=== PATIENT | female | born 1940 | race Caucasian/White ===

== ENCOUNTER 2017-05-08 12:02 | Inpatient (IN) | payer MEDICARE, OTHER ==
[~2017-05-08] VITALS: Ht 167.6 cm; Wt 84.0 kg
[2017-05-08 12:27] VITALS: BP 195/109; PULSE 74; RESP 20; O2SAT 100
[2017-05-08 13:10] VITALS: BP 191/86
[2017-05-08] MEDS ORDERED: ROSU5 PO (13:43)
[2017-05-08] MEDS ORDERED: ERGO1CAP30 PO (13:43)
[2017-05-08] MEDS ORDERED: PAXI20TA10 PO (13:43)
[2017-05-08] MEDS ORDERED: OXYB5TAB10 PO (13:43)
[2017-05-08] MEDS ORDERED: TRAM50TA PO (13:43)
[2017-05-08] MEDS ORDERED: LEVO50TA4 PO (13:43)
[2017-05-08] MEDS ORDERED: TRAZ100T6 PO (13:43)
[2017-05-08] MEDS ORDERED: LANTUS2P SQ (13:43)
[2017-05-08] MEDS ORDERED: VALS1TAB70 PO (13:43)
[2017-05-08] MEDS ORDERED: CARV3.125 PO (13:43)
[2017-05-08] MEDS ORDERED: PERC5TAB12 PO (13:43)
[2017-05-08] MEDS ORDERED: CARVEDILOL 3.125 MG TAB PO ONE (14:00)
--- NOTE | 2017-05-08 14:29 | PD ---
HPI Chief Complaint: Musculoskeletal Complaint Time Seen by Provider: 12:32 Travel History International Travel<30 days: No Contact w/Intl Traveler<30days: No Traveled to known affect area: No History of Present Illness HPI 76-year-old female presents with right ankle pain and area of opening that is not improved after 2 rounds of antibiotics. She went to her pencil maker Dr. Golden yesterday and she removed her toenail and stated to continue her current treatment. She states she is here because she doesn't know what else to do. Quality pain is sharp. Severity is moderate. She denies any trauma, fever or other concurrent complaints. She has not taken her blood pressure medication yet today. PFSH Past Medical History Hx Anticoagulant Therapy: Yes Arthritis: Yes Depression: Yes Cancer: Yes (COLON) Cardiovascular Problems: Yes High Cholesterol: Yes Cerebrovascular Accident: Yes Coronary Artery Disease: Yes Diabetes: Yes Patient Takes Glucophage: No Diminished Hearing: Yes ([facility]) Myocardial Infarction: Yes Renal Failure: Yes Thyroid Disease: Yes Tetanus Vaccination: Never Vaccinated Influenza Vaccination: Yes Past Surgical History Abdominal Surgery: Yes (REMOVED PART OF COLON) Cholecystectomy: Yes Coronary Artery Bypass Graft: Yes (2 VESSEL 2014) Coronary Stent: Yes (ONE) Eye Surgery: Yes (BILATERAL CATARACT) Other Surgery: Yes (BILATERAL CAROTID SURGERIES) Social History Alcohol Use: Yes ([place]) Tobacco Use: No Substance Use: No Allergies-Medications (Allergen,Severity, Reaction): Coded Allergies: No Known Allergies (Unverified , 05/08/17) Reported Meds & Prescriptions Reported Meds & Active Scripts Active Reported Lantus Inj (Insulin Glargine) 100 Unit/Ml Inj 25 Units SQ DAILY Ergocalciferol 50,000 Unit Cap 50,000 Units PO SUNDAY Valsartan 320 Mg Tab 320 Mg PO HS Crestor (Rosuvastatin Calcium) 5 Mg Tab 5 Mg PO HS Levothyroxine (Levothyroxine Sodium) 50 Mcg Tab 50 Mcg PO DAILY Paxil (Paroxetine HCl) 20 Mg Tablet 20 Mg PO DAILY Coreg (Carvedilol) 3.125 Mg Tab 3.125 Mg PO DAILY Ditropan (Oxybutynin Chloride) 5 Mg Tab 5 Mg PO BID Trazodone (Trazodone HCl) 100 Mg Tablet 50 Mg PO HS Tramadol (Tramadol HCl) 50 Mg Tab 100 Mg PO HS Percocet (Oxycodone-Acetaminophen) 5-325 mg Tab 1 Tab PO BID PRN Review of Systems Except as stated in HPI: all other systems reviewed are Neg Physical Exam Narrative GENERAL: Well-nourished, well-developed patient. SKIN: To right lateral ankle there is a small circular area with dried blood with small amount of surrounding erythema noted, no crepitus or abscess HEAD: Normocephalic and atraumatic. EYES: No injection or drainage. ENT: No nasal drainage noted. NECK: Supple, trachea midline. CARDIOVASCULAR: Regular rate and rhythm RESPIRATORY: No increased effort. No accessory muscle use EXTREMITIES: No edema.Pain with palpation of right lateral ankle with area of skin changes noted above, no pain with other joints , palpable dorsalis pedis pulse noted, sensation grossly intact,compartments soft. NEUROLOGICAL: Awake and alert. Moves all extremities. Normal speech. Data Data Last Documented VS Vital Signs Date Time Temp Pulse Resp B/P Pulse Ox O2 Delivery O2 Flow Rate FiO2 05/08/17 13:10 191/86 05/08/17 12:27 74 20 100 Orders Carvedilol (Coreg) (05/08/17 14:00) Oxycodone-Acetamin 5-325 Mg (Percocet (05/08/17 14:45) Complete Blood Count With Diff (05/08/17 15:36) Basic Metabolic Panel (Bmp) (05/08/17 15:36) Iv Access Insert/Monitor (05/08/17 15:36) Magnesium (Mg) (05/08/17 15:36) Prothrombin Time / Inr (Pt) (05/08/17 15:36) Act Partial Throm Time (Ptt) (05/08/17 15:36) Consult Vascular Surgery (05/08/17 ) Arterial Segmt Dopp Ltd Beverley (05/08/17 ) Us Venous Mapping Low Ext Bila (05/08/17 ) Npo After Midnight W/ Po Meds (05/08/17 Dinner) (Hub Use Only)Inp Phy Cons/Ref (05/08/17 ) Vital Signs (Adult) LISETH.Q4H (05/08/17 17:38) Sodium Chlor 0.9% 1000 Ml Inj (Ns 1000 M (05/08/17 17:45) Blood Glucose Goal (Criteria) (05/08/17 17:38) Hypoglycemia 70 Mg/Dl Or < (05/08/17 17:38) Notify Dr: Other (05/08/17 17:38) Dextrose 50% In Ashwin (Vial) Inj (D50w (Vi (05/08/17 17:45) Glucagon Inj (Glucagon Inj) (05/08/17 17:45) Insulin Aspart Supplemtl Scale (Novolog (05/08/17 21:00) Admit Order (Ed Use Only) (05/08/17 17:47) Labs Laboratory Tests Test 05/08/17 17:32 White Blood Count 10.6 TH/MM3 Red Blood Count 4.03 MIL/MM3 Hemoglobin 11.5 GM/DL Hematocrit 35.1 % Mean Corpuscular Volume 87.1 FL Mean Corpuscular Hemoglobin 28.5 PG Mean Corpuscular Hemoglobin 32.8 % Concent Red Cell Distribution Width 13.6 % Platelet Count 183 TH/MM3 Mean Platelet Volume 8.5 FL Neutrophils (%) (Auto) 77.5 % Lymphocytes (%) (Auto) 9.4 % Monocytes (%) (Auto) 11.3 % Eosinophils (%) (Auto) 1.2 % Basophils (%) (Auto) 0.6 % Neutrophils # (Auto) 8.3 TH/MM3 Lymphocytes # (Auto) 1.0 TH/MM3 Monocytes # (Auto) 1.2 TH/MM3 Eosinophils # (Auto) 0.1 TH/MM3 Basophils # (Auto) 0.1 TH/MM3 CBC Comment DIFF FINAL Differential Comment Prothrombin Time 10.0 SEC Prothromb Time International 0.9 RATIO Ratio Activated Partial 28.9 SEC Thromboplast Time Sodium Level 139 MEQ/L Potassium Level 4.5 MEQ/L Chloride Level 105 MEQ/L Carbon Dioxide Level 29.2 MEQ/L Anion Gap 5 MEQ/L Blood Urea Nitrogen 18 MG/DL Creatinine 1.17 MG/DL Estimat Glomerular Filtration 45 ML/MIN Rate Random Glucose 198 MG/DL Calcium Level 8.9 MG/DL Magnesium Level 2.0 MG/DL MDM Medical Decision Making Medical Screen Exam Complete: Yes Emergency Medical Condition: Yes Medical Record Reviewed: Yes (past history confirmed) Interpretation(s) CBC & BMP Diagram 05/08/17 17:32 Last 24 hours Impressions Lower Extremity Ultrasound 05/08/17 0000 Signed Impressions: Service Date/Time: Monday, May 08, 2017 16:11 - CONCLUSION: 1. Greater saphenous vein is not well-demonstrated beyond the mid thigh on the right and beyond the proximal thigh on the left. Mikel Carrillo MD Differential Diagnosis Arterial insufficiency, diabetic ulcer, cellulitis Narrative Course Will discuss with her pencil maker and give her home bp medication Patient given update and agrees to close follow-up after lengthy discussion with nurse practitioner Patient will be placed in observation Physician Communication Physician Communication dr golden states likely related to arterial insufficiency and states she has been having difficulty getting her an with vascular, states tried to get CT runoff but cannot due to renal function, requests to discuss with vascular surgeon dr gar states patient can go home for outpatient ultrasound that we cannot do here in the ER and he will have his nurse practitioner come down to give card and help coordinate Nurse practitioner came down and evaluated patient and set up follow-up for tomorrow morning at 10:30 AM Nurse practitioner came to me and states now plan has changed and patient will be getting angiogram for evaluation in the hospital for definitive testing and to place in observation Dr. Hernandez agrees to observation Diagnosis Primary Impression: Ulcer of right ankle Qualified Code: L97.311 - Ulcer of right ankle, limited to breakdown of skin Admitting Information Admitting Physician Requests: Observation Nichole Zarate MD May 08, 2017 14:29
[2017-05-08] MEDS ORDERED: oxyCODONE/ACETAMINOPHEN 5 MG/325 MG TAB PO ONE (14:45)
[2017-05-08] MEDS ORDERED: CLIN1CAP6 PO (15:10)
--- NOTE | 2017-05-08 16:04 | PD.VS.CON ---
History of Present Illness Chief Complaint: R foot pain Consult Requested by: ED History of Present Illness 76 yo female with R LE pain that has been present for 2 weeks. She has had to sleep in a chair. She has a wound on the lateral aspect of her leg that is non healing and most recently, she has had a nail removed by per automatic maintainer. She was told she has cellulitis and has been given 2 rounds of antibiotics without improvement in pain or erythema. Past/Family/Social History Past Medical History CAD PAD CVA after CABG Colon CA DM CRI Past Surgical History colon cancer resection with post-op matthew-anastomotic ulcer CABG with post-op sternal infection L LE bypass Social History non smoker worked for [employer] for 40 years lives with brother Family History NC Home Medications Active Scripts Clindamycin 300 Mg [id number] Mg PO TID 7 Days Prov:Nichole Zarate MD 05/08/17 Reported Medications Insulin Glargine Inj (Lantus Inj)100 Unit/Ml Inj25 Units SQ DAILY 05/08/17 Ergocalciferol 50,000 Unit Cap50,000 Units PO SUNDAY #30 CAP Ref 0 05/08/17 Valsartan 320 Mg [id number] Mg PO HS #30 TAB Ref 0 05/08/17 Rosuvastatin (Crestor)5 Mg Tab5 Mg PO HS #30 TAB Ref 0 05/08/17 Levothyroxine 50 Mcg Tab50 Mcg PO DAILY #30 TAB Ref 0 05/08/17 Paroxetine HCl (Paxil)20 Mg [id number] Mg PO DAILY 05/08/17 Carvedilol (Coreg)3.125 Mg Tab3.125 Mg PO DAILY #60 TAB Ref 0 05/08/17 Oxybutynin (Ditropan)5 Mg Tab5 Mg PO BID #60 TAB Ref 0 05/08/17 Trazodone 100 Mg [id number] Mg PO HS #30 TAB Ref 0 05/08/17 Tramadol 50 Mg [id number] Mg PO HS Ref 0 05/08/17 Oxycodone-Acetaminophen (Percocet)5-325 mg Tab1 Tab PO BID PRN (PAIN) Ref 0 05/08/17 Coded Allergies: No Known Allergies (Unverified , 05/08/17) Review of Systems Constitutional: COMPLAINS OF: Fatigue Eyes: DENIES: Vision loss Respiratory: DENIES: Cough Cardiovascular: COMPLAINS OF: Lower Extremity Edema, DENIES: Chest pain, Syncope Physical Exam Vitals/I&O Date Time Temp Pulse Resp B/P Pulse Ox O2 Delivery O2 Flow Rate FiO2 05/08/17 13:10 191/86 05/08/17 12:27 74 20 195/109 100 Neuro: alert, conversant HEENT: NC/AT Neck: no JVD Heart: reg rate; sternal incision healed but clear evidence of sternal infection with secondary healing of sternotomy Lungs: CTA B Abdomen: NT Vascular: palpable R femoral pulse but no popliteal or pedal pulses Extremities: ruborous R foot; lateral malleolar ulcer modest swelling pending Assessment and Plan Plan 1. Admit to medical service 2. Check CBC, BMP, coags, CXR 3. ABIs and LE vein survey (ordered) 4. NPO after MN tonight (ordered) 5. I have her on my OR schedule tomorrow for an angiogram and potential endovascular intervention although I think that the likely scenario is her needing a distal bypass given anticipated symmetry Oral De Anda MD FACS, RPVI polish maker [facility] - [facility] V[facility] Surgery at [facility] [phone] Oral De Anda MD May 08, 2017 16:04
--- NOTE | 2017-05-08 17:01 | RADRPT ---
EXAM DATE/TIME: 05/08/2017 16:11 [facility] COMPARISON: No previous studies available for comparison. INDICATIONS : Pre-op cardiac surgery. MEDICAL HISTORY : Hypercholesterolemia. Carcinoma, colon. Cerebrovascular accident. Coronary ar gabriela disease. Renal failure. Arthritis. Diabetes. Depression. SURGICAL HISTORY : Cholecystectomy. Coronary artery bypass graft. Coronary stent. Colon resecti on. Bilateral carotid surgery. ENCOUNTER: Initial ACUITY: 1 day PAIN SCORE: 4/10 LOCATION: Bilateral leg. GREATER SAPHENOUS VEIN THIGH: PROXIMAL: Right 3 mm Left 2 mm MID: Right 2 mm Left Non-visualized DISTAL: Right Non-visualized Left Non-visualized CALF: PROXIMAL: Right Non-visualized Left Non-visualized MID: Right Non-visualized Left Non-visualized DISTAL: Right Non-visualized Left Non-visualized FINDINGS: The venous system of the lower extremities are patent by color Doppler imaging. Measurements of the leg veins (in mm) are listed above. CONCLUSION: 1. Greater saphenous vein is not well-demonstrated beyond the mid thigh on the right and beyond the p roximal thigh on the left. Mikel Carrillo MD on May 08, 2017 at 16:56 Board Certified Radiologist. This report was verified electronically.
[2017-05-08] MEDS ORDERED: DEXTROSE 50% IN WATER 50 ML VIAL(D50) IV PRN (17:45)
[2017-05-08] MEDS ORDERED: GLUCAGON 1 MG/ML VIAL OTHER PRN (17:45)
[2017-05-08 18:06] LABS: AUTOMATED NEUTROPHIL # 8.3 TH/MM3 (1.8-7.7); BASOPHIL # 0.1 TH/MM3 (0-0.2); BASOPHIL % 0.6 % (0.0-2.0); EOSINOPHIL # 0.1 TH/MM3 (0-0.4); EOSINOPHIL % 1.2 % (0.0-4.0); HEMATOCRIT 35.1 % (35.0-46.0); HEMO FLAGS DIFF FINAL; LYMPH % 9.4 % (9.0-44.0); MEAN CELL VOLUME 87.1 FL (80.0-100.0); MEAN CORPUSCULAR HEMOGLOBIN 28.5 PG (27.0-34.0); MEAN CORPUSCULAR HGB CONC 32.8 % (32.0-36.0); MONO % 11.3 % (0.0-8.0); NEUT % 77.5 % (16.0-70.0); PLATELET COUNT 183 TH/MM3 (150-450); RED BLOOD COUNT 4.03 MIL/MM3 (4.00-5.30); RED CELL DISTRIBUTION WIDTH 13.6 % (11.6-17.2); WHITE BLOOD COUNT 10.6 TH/MM3 (4.0-11.0)
[2017-05-08] MEDS ORDERED: CLINDAMYCIN 150 MG CAP PO ONE (18:15)
[2017-05-08 18:16] LABS: APTT (PATIENT) 28.9 SEC (24.3-30.1); INTERNATIONAL NORMALIZED RATIO 0.9 RATIO
[2017-05-08 18:20] LABS: BICARBONATE 29.2 MEQ/L (21.0-32.0); POTASSIUM 4.5 MEQ/L (3.5-5.1)
[2017-05-08] MEDS: SODIUM CHLOR 0.9% 1000 ML INJ 1,000 ML IV SCH (18:56)
[2017-05-08 18:58] VITALS: BP 182/76; PULSE 79; RESP 16; O2SAT 98
[2017-05-08] MEDS ORDERED: hydrALAZINE HCL 20 MG/ML VIAL IV PUSH PRN (19:45)
[2017-05-08 19:59] VITALS: BP 177/75; PULSE 79
[2017-05-08] MEDS: INSULIN ASPART SUPPLEMENTAL SCALE SQ SCH (21:27)
[2017-05-08 21:37] VITALS: BP 183/75; PULSE 87; RESP 18; TEMP 98.8; O2SAT 99
[2017-05-08] MEDS ORDERED: MORPHINE SULFATE 4 MG/ML INJ IV PUSH PRN (22:30)
[2017-05-08] MEDS: MORPHINE SULFATE 4 MG/ML INJ IV PUSH PRN (22:43)
[2017-05-09] VITALS (14 sets, daily range): BP systolic 124–203; BP diastolic 50–88; PULSE 74–90; RESP 16–20; TEMP 98–98.9; O2SAT 94–98
[2017-05-09] MEDS: CLINDAMYCIN INJ 300 MG in SODIUM CHLORIDE 0.9% INJ 100 ML IV SCH ×3 (03:27→18:48)
[2017-05-09] MEDS: MORPHINE SULFATE 4 MG/ML INJ IV PUSH PRN ×3 (04:14→23:54)
[2017-05-09] MEDS: SODIUM CHLOR 0.9% 1000 ML INJ 1,000 ML IV SCH ×2 (06:18→21:01)
[2017-05-09] MEDS: INSULIN ASPART SUPPLEMENTAL SCALE SQ SCH ×4 (06:25→20:58)
--- NOTE | 2017-05-09 08:24 | HHI.HP ---
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 Patient presented to the emergency room with complaint of right ankle pain and a wound that has not healed after transient antibiotics. Patient indicates that approximately 2 months ago she hit her right ankle on a rattan chair. She noted a wound started to develop, it did not improve. She went to see her primary care physician as well as quality control tester Dr. Golden. She was put on antibiotics without any relief. A few weeks later she noted that the leg had become more cool to the touch. The pain was also unbearable and had difficulty ambulating. Was told by Dr. Golden that the reason the ulcer was not healing was due to vascular insufficiency. She did have ABIs as outpatient and based on those results she was scheduled to have a CTA but it was not done because of renal insufficiency. Yesterday, she saw Dr. Golden who removed the right great toe toenail. She's had previous bypass to the left lower extremity. Her pain was so severe that she decided to come to the hospital for further evaluation. She also endorses that she had not taken her medications in couple days as she had not been able to get refills. Denies any fever, no chills. No chest pain, no shortness of breath. She also has a blister to the left great toe that has also been monitored by her quality control tester. Unfortunately patient continues to smoke. Laboratory workup was essentially unremarkable except for creatinine 1.17 and GFR of 45. She was not aware of any renal insufficiency. It is not clear as to what her baseline GFR is. CBC was unremarkable. Indicates that blood sugars have been uncontrolled at home. Ultrasound of the lower extremity was done showing greater saphenous vein that is not well demonstrated beyond the mid thigh on the right and beyond the proximal thigh on the left. Dr. De Anda evaluated patient, he plans to do surgery today. Patient indicates her maintenance shop laborer is Dr. Chayo Vizcaino and she had recent cardiac evaluation and was found stable. She has had bypass 2 with postop complications of sternum infection postop in 2015. Patient is admitted for further evaluation and treatment. (Nicky Douglas) Review of Systems Constitutional: DENIES: Diaphoretic episodes, Fatigue, Fever, Weight gain, Weight loss, Chills, Dizziness, Change in appetite, Night Sweats Endocrine: DENIES: Abnorml menstrual pattern, Heat/cold intolerance, Polydipsia , Polyuria, Polyphagia Eyes: DENIES: Blurred vision, Diplopia, Eye inflammation, Eye pain, Vision loss , Photosensitivity, Double Vision Ears, nose, mouth, throat: DENIES: Tinnitus, Hearing loss, Vertigo, Nasal discharge, Oral lesions, Throat pain, Hoarseness, Ear Pain, Running Nose, Epistaxis, Sinus Pain, Toothache, Odynophagia Respiratory: DENIES: Apneas, Cough, Snoring, Wheezing, Hemoptysis, Sputum production, Shortness of breath Cardiovascular: COMPLAINS OF: Claudication (right leg pain, difficult to walk ) , DENIES: Chest pain, Palpitations, Syncope, Dyspnea on Exertion, PND, Lower Extremity Edema, Orthopnea Gastrointestinal: DENIES: Abdominal pain, Black stools, Bloody stools, Constipation, Diarrhea, Nausea, Vomiting, Difficulty Swallowing, Anorexia Genitourinary: DENIES: Abnormal vaginal bleeding, Dysmenorrhea, Dyspareunia, Sexual dysfunction, Urinary frequency, Urinary incontinence, Urgency, Hematuria , Dysuria, Nocturia, Vaginal discharge Musculoskeletal: DENIES: Joint pain, Muscle aches, Stiffness, Joint Swelling, Back pain, Neck pain Integumentary: DENIES: Abnormal pigmentation, Pruritus, Rash, Nail changes, Breast masses, Breast skin changes, Nipple discharge Hematologic/lymphatic: DENIES: Bruising, Lymphadenopathy Immunologic/allergic: DENIES: Eczema, Urticaria Neurologic: DENIES: Abnormal gait, Headache, Localized weakness, Paresthesias, Seizures, Speech Problems, Tremor, Poor Balance Psychiatric: DENIES: Anxiety, Confusion, Mood changes, Depression, Hallucinations, Agitation, Suicidal Ideation, Homicidal Ideation, Delusions ( Nicky Douglas) Past Family Social History Past Medical History Hypertension Hyperlipidemia Carotid artery disease Type 2 diabetes Peripheral arterial disease Previous CVA with residual speech problem, has trouble with or finding Prior myocardial infarction CAD and CABG 2 in 2015 that was complicated by sternotomy infection that required a second surgery [place] of hearing Colon cancer 10 years ago Arthritis Hypothyroid Past Surgical History CABG times 01/01/15, require second surgery due to sternotomy infection Left lower extremity bypass Bilateral carotid endarterectomy Bowel resection 10 years ago D&C Cataract surgery Cholecystectomy Reported Medications Reported Meds & Active Scripts Active Reported Lantus Inj (Insulin Glargine) 100 Unit/Ml Inj 25 Units SQ DAILY Ergocalciferol 50,000 Unit Cap 50,000 Units PO SUNDAY Valsartan 320 Mg Tab 320 Mg PO HS Crestor (Rosuvastatin Calcium) 5 Mg Tab 5 Mg PO HS Levothyroxine (Levothyroxine Sodium) 50 Mcg Tab 50 Mcg PO DAILY Paxil (Paroxetine HCl) 20 Mg Tablet 20 Mg PO DAILY Coreg (Carvedilol) 3.125 Mg Tab 3.125 Mg PO DAILY Ditropan (Oxybutynin Chloride) 5 Mg Tab 5 Mg PO BID Trazodone (Trazodone HCl) 100 Mg Tablet 50 Mg PO HS Tramadol (Tramadol HCl) 50 Mg Tab 100 Mg PO HS Percocet (Oxycodone-Acetaminophen) 5-325 mg Tab 1 Tab PO BID PRN (Nicky Douglas) Allergies: Coded Allergies: Sulfa (Verified Allergy, Unknown, 05/08/17) Active Ordered Medications Inpatient Medications Carvedilol (Coreg) 3.125 mg DAILY PO ; Start 05/09/17 at 09:00; Status UNV Clindamycin Phosphate/Sodium Chloride (Cleocin Inj/NS Inj) 102 ml @ 104 mls/hr Q8H IV Last administered on 05/09/17 03:27; Start 05/09/17 at 03:00 Clindamycin HCl (Cleocin) 300 mg ONCE ONCE PO Last administered on 05/08/17 18:56; Start 05/08/17 at 18:15; Stop 05/08/17 at 18:16; Status DC Dextrose (D50w (Vial) Inj) 50 ml UNSCH PRN IV HYPOGLYCEMIA-SEE COMMENTS; Start 05/08/17 at 17:45 Enalaprilat (Vasotec Inj) 1.25 mg Q6H PRN IV PUSH SBP>160, DBP>90; Start 05/09 at 08:15 Ergocalciferol (Drisdol) 50,000 units DAILY PO ; Start 05/09/17 at 09:00; Status UNV Glucagon (Glucagon Inj) 1 mg UNSCH PRN OTHER HYPOGLYCEMIA-SEE COMMENTS; Start 05/08/17 at 17:45 Hydralazine HCl (Apresoline Inj) 10 mg Q30M PRN IV PUSH BP > 160/90 Last administered on 05/08/17 19:50; Start 05/08/17 at 19:45; Stop 05/08/17 at 20:30 ; Status DC Insulin Aspart (NovoLOG SUPPLEMENTAL SCALE) 1 ACHS SLIDING SCALE SQ Last administered on 05/08/17 21:27; Start 05/08/17 at 21:00 Insulin Detemir (Levemir Inj) 25 units HS SQ ; Start 05/09/17 at 09:00 Levothyroxine Sodium (Synthroid) 50 mcg DAILY PO ; Start 05/09/17 at 09:00; Status UNV Morphine Sulfate (Morphine Inj) 4 mg Q4H PRN IV PUSH PAIN SCALE 6-10 Last administered on 05/09/17 04:14; Start 05/08/17 at 22:30 Morphine Sulfate 2 mg 2 mg Q3H PRN IV PUSH PAIN SCALE 3-6; Start 05/08/17 at 22 :30 Non-Formulary Medication 50 mg HS PO ; Start 05/09/17 at 21:00; Status UNV Oxybutynin Chloride (Ditropan) 5 mg BID PO ; Start 05/09/17 at 09:00; Status UNV Oxycodone/ Acetaminophen 1 tab 1 tab ONCE ONCE PO Last administered on 16:35; Start 05/08/17 at 14:45; Stop 05/08/17 at 14:46; Status DC Paroxetine HCl (Paxil) 20 mg DAILY PO ; Start 05/09/17 at 09:00; Status UNV Sodium Chloride (NS 1000 ml Inj) 1,000 ml @ 75 mls/hr [id number] IV Last administered on 05/09/17 06:18; Start 05/08/17 at 17:45 Valsartan (Diovan) 320 mg HS PO ; Start 05/09/17 at 21:00; Status UNV Family History Reviewed, noncontributory Social History Patient is not , her brother lives with her. He recently had open heart surgery. Patient continues to smoke, one pack every 2 weeks. No alcohol abuse , no illegal drug use. (Nicky Douglas) Physical Exam Vital Signs Vital Signs Date Time Temp Pulse Resp B/P Pulse Ox O2 Delivery O2 Flow Rate FiO2 05/09/17 07:25 98.9 74 16 196/79 96 05/09/17 04:41 18 05/09/17 03:30 98.6 81 18 167/73 96 05/09/17 00:28 18 151/62 05/08/17 21:37 98.8 87 18 183/75 99 05/08/17 19:59 79 177/75 05/08/17 18:58 79 16 182/76 98 05/08/17 13:10 191/86 05/08/17 12:27 74 20 195/109 100 Physical Exam GENERAL: This is a well-nourished, well-developed patient, in no apparent distress. SKIN: No rashes, ecchymoses or lesions. Cool and dry. HEAD: Atraumatic. Normocephalic. No temporal or scalp tenderness. EYES: Pupils equal round and reactive. Extraocular motions intact. No scleral icterus. No injection or drainage. ENT: Nose without bleeding, purulent drainage or septal hematoma. Throat without erythema, tonsillar hypertrophy or exudate. Uvula midline. Airway patent. NECK: Trachea midline. No JVD or lymphadenopathy. Supple, nontender, no meningeal signs. CARDIOVASCULAR: Regular rate and rhythm without murmurs, gallops, or rubs. RESPIRATORY: Clear to auscultation. Breath sounds equal bilaterally. No wheezes , rales, or rhonchi. GASTROINTESTINAL: Abdomen soft, non-tender, nondistended. No hepato-splenomegaly , or palpable masses. No guarding. MUSCULOSKELETAL: Right lateral ankle noted with circular ulcerated area with dry blood, there is small amount of erythema around it, no drainage. No fluctuance noted. Right foot has mild to moderate erythema, toes are cool to touch. Doppler pulses only. Right great toe nail has been removed. Ulcerated area to left great toe, there is crusted blood over it. There is no drainage. Left faint pedal pulse. No other joint abnormality. NEUROLOGICAL: Awake alert oriented 3. No focal deficit. Laboratory Laboratory Tests Test 05/08/17 17:32 White Blood Count 10.6 Red Blood Count 4.03 Hemoglobin 11.5 Hematocrit 35.1 Mean Corpuscular Volume 87.1 Mean Corpuscular Hemoglobin 28.5 Mean Corpuscular Hemoglobin 32.8 Concent Red Cell Distribution Width 13.6 Platelet Count 183 Mean Platelet Volume 8.5 Neutrophils (%) (Auto) 77.5 Lymphocytes (%) (Auto) 9.4 Monocytes (%) (Auto) 11.3 Eosinophils (%) (Auto) 1.2 Basophils (%) (Auto) 0.6 Neutrophils # (Auto) 8.3 Lymphocytes # (Auto) 1.0 Monocytes # (Auto) 1.2 Eosinophils # (Auto) 0.1 Basophils # (Auto) 0.1 CBC Comment DIFF FINAL Differential Comment Prothrombin Time 10.0 Prothromb Time International 0.9 Ratio Activated Partial 28.9 Thromboplast Time Sodium Level 139 Potassium Level 4.5 Chloride Level 105 Carbon Dioxide Level 29.2 Anion Gap 5 Blood Urea Nitrogen 18 Creatinine 1.17 Estimat Glomerular Filtration 45 Rate Random Glucose 198 Calcium Level 8.9 Magnesium Level 2.0 (Nicky Douglas) Result Diagram: 05/08/17 1732 05/08/17 1732 Imaging Last Impressions Lower Extremity Ultrasound 05/08/17 0000 Signed Impressions: Service Date/Time: Monday, May 08, 2017 16:11 - CONCLUSION: 1. Greater saphenous vein is not well-demonstrated beyond the mid thigh on the right and beyond the proximal thigh on the left. Mikel Carrillo MD (Nicky Douglsa) Assessment and Plan Problem List: (1) Ulcer of right ankle (2) PAD (peripheral artery disease) (3) Hx of myocardial infarction (4) History of CVA with residual deficit (5) HTN (hypertension) (6) Tobacco abuse (7) Hyperlipidemia (8) CAD (coronary artery disease) (9) Renal insufficiency Assessment and Plan Admit to Dr. Coffman 76-year-old female with history of PAD, previous left leg bypass, tobacco abuse , diabetes type 2, coronary artery disease, CVA. Presented to emergency room with poorly healing ulcer to the right lateral malleolus and increasing leg pain 2 months. Right leg ischemia, poorly healing ulcer with superimposed cellulitis -Vascular input is appreciated, patient going to the operating room for endovascular intervention, possible bypass Continue with IV fluids Nothing by mouth status Continue with antibiotics for now Pain management -Continue neurovascular check -Patient had counseled extensively about tobacco abuse and the need to quit. Renal insufficiency, unclear what baseline is Continue with cautious hydration BMP to be following the morning Diabetes type 2, poorly controlled Accu-Cheks before meals and at bedtime with insulin therapy as needed Hypertension, blood pressure elevated Patient has been without medications for a couple of days, will resume home medications We'll add Vasotec as needed for blood pressure 160 greater than 90 Hyperlipidemia Continue home medications History myocardial infarction, CAD, CABG 2 complicated by sternotomy infection Continue home medications History of CVA, has residual problems with poor finding Stable, continue to monitor Home medications reviewed, initiated as indicated Plan of care has been discussed with the patient, attending and registered nurse. Further management of the patient will be dependent on the hospital course This patient was seen by myself and Dr. Coffman, this H&P is written on his behalf (Nicky Douglas) Assessment and Plan pt seen and examined as above face to face time spent with pt chart reviewed plan fo care dw crisis intervention counselor dw pt (Hill Coffman MD) Physician Certification 2 Midnight Certification Type: Admission for Inpatient Services Order for Inpatient Services The services are ordered in accordance with Medicare regulations or non- Medicare payer requirements, as applicable. In the case of services not specified as inpatient-only, they are appropriately provided as inpatient services in accordance with the 2-midnight benchmark. Estimated LOS (days): 2 2 days is the estimated time the patient will need to remain in the hospital, assuming treatment plan goals are met and no additional complications. Post-Hospital Plan: Not yet determined (Nicky Douglas) Problem Qualifiers (1) Ulcer of right ankle: Qualified Code: L97.311 - Ulcer of right ankle, limited to breakdown of skin (2) HTN (hypertension): Qualified Code: I10 - Essential hypertension (3) Hyperlipidemia: Qualified Code: E78.5 - Hyperlipidemia, unspecified hyperlipidemia type (4) CAD (coronary artery disease): Qualified Code: I25.10 - Coronary artery disease involving [place] coronary artery of [place] heart without angina pectoris Nicky Douglas May 09, 2017 08:24 Hill Coffman MD May 09, 2017 16:22
[2017-05-09] MEDS: INSULIN DETEMIR 100 UNITS/ML VIAL SQ SCH ×2 (08:42→20:58)
[2017-05-09] MEDS: PARoxetine HCL 20 MG TAB PO SCH (09:00)
[2017-05-09] MEDS: CARVEDILOL 3.125 MG TAB PO SCH (09:00)
[2017-05-09] MEDS: LEVOTHYROXINE SODIUM 50 MCG TAB PO SCH (09:00)
[2017-05-09] MEDS: OXYBUTYNIN CHLORIDE 5 MG TAB PO SCH ×2 (09:00→20:55)
[2017-05-09] MEDS ORDERED: MIDAZOLAM HCL 5 MG/ML VIAL (1 ML) ONE (09:07)
[2017-05-09] MEDS ORDERED: HEPARIN SODIUM - IV 10,000 UNITS/10 ML VIAL ONE (09:07)
[2017-05-09] MEDS ORDERED: hydrALAZINE HCL 20 MG/ML VIAL ONE (10:05)
[2017-05-09] MEDS ORDERED: IOHEXOL 300 MG/ML 100 ML BTL (for Rad CT) OTHER ONE (10:18)
--- NOTE | 2017-05-09 10:22 | HHI.PR ---
Immediate Post Op Note Procedure Date: May 09, 2017 Pre Op Diagnosis: PAD, R LE ischemic ulcers Post Op Diagnosis: PAD, R LE ischemic ulcers Surgeon: Oral De Anda Repairer Cylinder Heads(s): none Procedure: Aortogram w/ R LE angiogram R popliteal ROAD ENGINEER (4mm) L OPTOMETRY ASSISTANT Angioseal Findings: near occlusive popliteal calcific stenosis, excellent result with ROAD ENGINEER (4mm) AT runoff with diminutive DP; PT/peroneal occluded Complications: none apparent Specimen(s) removed: none Estimated blood loss: 10mL Anesthesia: MAC Drains: None Patient to: Other (DOCU) Patient Condition: Good Implant/Devices: SEE IMPLANT LOG (if applicable) Date/Time of Procedure: SEE SURGICAL CARE RECORD Oral De Anda MD May 09, 2017 10:22
[2017-05-09] MEDS ORDERED: CLOPIDOGREL 75 MG TAB PO ONE (11:00)
[2017-05-09] MEDS: ENALAPRILAT 1.25 MG/ML VIAL IV PUSH PRN (15:12)
[2017-05-09 16:22] LABS: HEMATOCRIT 36.6 % (35.0-46.0); REVIEW FLAG FINAL
[2017-05-09] MEDS: CLOPIDOGREL 75 MG TAB PO SCH (18:48)
[2017-05-09] MEDS: VALSARTAN 160 MG TAB PO SCH (20:54)
[2017-05-09] MEDS: ATORVASTATIN 10 MG TAB PO SCH (20:55)
[2017-05-09] MEDS: traZODone HCL 50 MG TAB PO SCH (20:55)
[2017-05-10] VITALS (25 sets, daily range): BP systolic 113–172; BP diastolic 50–75; PULSE 59–77; RESP 16–18; TEMP 97.6–98.6; O2SAT 97–100
[2017-05-10] MEDS: CLINDAMYCIN INJ 300 MG in SODIUM CHLORIDE 0.9% INJ 100 ML IV SCH ×3 (03:41→18:04)
[2017-05-10] MEDS: LEVOTHYROXINE SODIUM 50 MCG TAB PO SCH (06:20)
[2017-05-10] MEDS: INSULIN ASPART SUPPLEMENTAL SCALE SQ SCH ×4 (06:25→20:11)
[2017-05-10] MEDS: MORPHINE SULFATE 4 MG/ML INJ IV PUSH PRN ×3 (08:56→20:09)
[2017-05-10] MEDS: OXYBUTYNIN CHLORIDE 5 MG TAB PO SCH ×2 (08:56→20:08)
[2017-05-10] MEDS: CLOPIDOGREL 75 MG TAB PO SCH (08:56)
[2017-05-10] MEDS: CARVEDILOL 3.125 MG TAB PO SCH (08:56)
[2017-05-10] MEDS: PARoxetine HCL 20 MG TAB PO SCH (08:56)
[2017-05-10] MEDS: SODIUM CHLOR 0.9% 1000 ML INJ 1,000 ML IV SCH ×2 (08:57→20:22)
--- NOTE | 2017-05-10 10:27 | HHI.FF ---
Face to Face Verification Diagnosis: (1) Ulcer of right ankle (2) CAD (coronary artery disease) (3) Hyperlipidemia (4) Renal insufficiency (5) Tobacco abuse (6) HTN (hypertension) (7) PAD (peripheral artery disease) (8) Hx of myocardial infarction (9) History of CVA with residual deficit Physical Therapy Order: Evaluate and Treat Home Health Nursing Order: Medical education Signs/symptoms of disease process I have seen patient Sharri Rosado on 05/10/17. My clinical findings support the need for the requested home health care services because: Deconditioned w/ increased weakness Need for psychosocial assistance I certify that my clinical findings support that this patient is homebound because: Unsteady gait/balance Unsafe to leave home unassisted Need for psychosocial assistance Nicky Douglas [facility] May 10, 2017 10:27
[2017-05-10] MEDS: COLLAGENASE OINT 30 GM TUBE TOPICAL SCH (11:00)
--- NOTE | 2017-05-10 11:20 | HHI.PR ---
Subjective Remarks increase right foot pain groggy, received morphine BP up overnight no cp no sob no fever Objective Objective Results - Vital Signs Date Time Temp Pulse Resp B/P Pulse Ox O2 Delivery O2 Flow Rate FiO2 05/10/17 09:35 98 05/10/17 09:13 16 05/10/17 08:00 98.4 73 18 172/75 97 05/10/17 08:00 61 05/10/17 06:45 66 05/10/17 05:04 68 05/10/17 04:24 69 05/10/17 03:49 97.9 68 16 113/50 97 05/10/17 03:48 64 05/10/17 02:10 73 05/10/17 01:24 75 05/10/17 00:00 77 05/09/17 23:30 98.0 79 16 124/50 95 05/09/17 23:00 79 05/09/17 22:00 88 05/09/17 21:00 88 05/09/17 20:00 98.2 90 18 162/63 98 05/09/17 20:00 84 05/09/17 19:49 85 05/09/17 19:33 94 21 05/09/17 16:24 85 20 160/68 05/09/17 15:00 98.3 90 18 203/88 05/09/17 15:00 98.3 90 18 200/80 96 05/09/17 14:24 88 16 200/80 98 05/09/17 13:00 98.3 87 16 179/62 98 05/09/17 12:21 97 Room Air I/O 05/09/17 05/09/17 05/09/17 05/10/17 05/10/17 05/10/17 07:00 15:00 23:00 07:00 15:00 23:00 Intake Total 340 ml 840 ml Output Total 0 ml Balance 340 ml 840 ml Intake Oral 240 ml 480 ml IV Total 100 ml 360 ml Output Urine Total 0 ml # Voids 2 0 Result Diagram: 05/09/17 1553 05/08/17 1732 Imaging Last Impressions Lower Extremity Ultrasound 05/08/17 0000 Signed Impressions: Service Date/Time: Monday, May 08, 2017 16:11 - CONCLUSION: 1. Greater saphenous vein is not well-demonstrated beyond the mid thigh on the right and beyond the proximal thigh on the left. Mikel Carrillo MD Other Results Laboratory Tests Test 05/09/17 15:53 Hemoglobin 12.1 Hematocrit 36.6 ROS General: Other (right foot pain ) HEENT: No: Sore Throat, Dysphagia Cardiac: No: Chest Pain, Edema, Palpitations Pulmonary: No: Cough, SOB, Wheezing GI: No: Abdominal Pain, BM, Diarrhea, N/V /FLAG MAKER: No: Dysuria, Urgency Neuro/MS: No: Lightheaded, Confusion Psych: No: Anxiety, Depression Skin: No: Itching, Rash Physical Exam Physical Exam GENERAL: This is a well-nourished, well-developed patient, in no apparent distress. SKIN: No rashes, ecchymoses or lesions. Cool and dry. HEAD: Atraumatic. Normocephalic. No temporal or scalp tenderness. EYES: Pupils equal round and reactive. Extraocular motions intact. No scleral icterus. No injection or drainage. ENT: Nose without bleeding, purulent drainage or septal hematoma. Throat without erythema, tonsillar hypertrophy or exudate. Uvula midline. Airway patent. NECK: Trachea midline. No JVD or lymphadenopathy. Supple, nontender, no meningeal signs. CARDIOVASCULAR: Regular rate and rhythm without murmurs, gallops, or rubs. RESPIRATORY: Clear to auscultation. Breath sounds equal bilaterally. No wheezes , rales, or rhonchi. GASTROINTESTINAL: Abdomen soft, non-tender, nondistended. No hepato-splenomegaly , or palpable masses. No guarding. MUSCULOSKELETAL: Right lateral ankle noted with circular ulcerated area with dry blood, there is small amount of erythema around it, no drainage. No fluctuance noted. Right foot has mild to moderate erythema, toes are cool to touch. Doppler pulses only. Right great toe nail has been removed. Ulcerated area to left great toe, there is crusted blood over it. There is no drainage. Left faint pedal pulse. No other joint abnormality. Left groin dressing D/I NEUROLOGICAL: Awake alert oriented 3. No focal deficit. Urinary Catheter: No Vascular Central Line Catheter: No A/P Diagnosis: (1) Ulcer of right ankle (2) PAD (peripheral artery disease) (3) Hx of myocardial infarction (4) History of CVA with residual deficit (5) HTN (hypertension) (6) Tobacco abuse (7) Hyperlipidemia (8) CAD (coronary artery disease) (9) Renal insufficiency Assessment and Plan 76-year-old female with history of PAD, previous left leg bypass, tobacco abuse , diabetes type 2, coronary artery disease, CVA. Presented to emergency room with poorly healing ulcer to the right lateral malleolus and increasing leg pain 2 months. Right leg ischemia, poorly healing ulcer with superimposed cellulitis -Vascular input is appreciated, patient going to the operating room for endovascular intervention, possible bypass -S/P Aortogram w/ R LE angiogram/R popliteal BACK SEAM STITCHER (4mm)/L COOLING TOWER OPERATOR Angioseal 05/09 Findings:near occlusive popliteal calcific stenosis, excellent result with BACK SEAM STITCHER ( 4mm) /AT runoff with diminutive DP; PT/peroneal occluded -Started on Plavix -Continue neurovascular check, has doppler pulses --having severe right foot, needs pain control before dc. D/W Dr. Flores, will order special shoe to inc. activity. Poss dc tomorrow if pain is well controlled. will start PO narcotics and use IV for breakthrough pain. Add Gabapentin 100 mg po TID Renal insufficiency, unclear what baseline is Continue with cautious hydration BMP in am Diabetes type 2, poorly controlled Accu-Cheks before meals and at bedtime with insulin therapy as needed Hypertension, blood pressure elevated, likely sec. to pain Patient has been without medications for a couple of days, will resume home medications continue Vasotec as needed for blood pressure 160 greater than 90 Hyperlipidemia Continue home medications History myocardial infarction, CAD, CABG 2 complicated by sternotomy infection Continue home medications History of CVA, has residual problems with poor finding Stable, continue to monitor Labs in am CM consult for dc planning, [facility] PT eval and tx, and OOB today poss dc tomorrow if pain is controlled D/W RN D/W Dr. Coffman D/W Dr. Flores D/W pt and family This patient was seen by myself and Dr. Coffman, this note is written on his behalf Problem Qualifiers (1) Ulcer of right ankle: Qualified Code: L97.311 - Ulcer of right ankle, limited to breakdown of skin (2) HTN (hypertension): Qualified Code: I10 - Essential hypertension (3) Hyperlipidemia: Qualified Code: E78.5 - Hyperlipidemia, unspecified hyperlipidemia type (4) CAD (coronary artery disease): Qualified Code: I25.10 - Coronary artery disease involving [place] coronary artery of [place] heart without angina pectoris Nicky Douglas May 10, 2017 11:20
--- NOTE | 2017-05-10 11:27 | PD.VS.PN ---
Subjective POD #: 1 Procedure(s): Aortogram w/ R LE angiogram R popliteal GLASS TUBE BENDER (4mm) L RESTORATION SILVERSMITH Angioseal Subjective/Hospital Course Pt in bed alert in NAD Pt c/o discomfort to R foot Pt reported slightly improved pain Motor intact BLE warm (Cary Gonzales) Objective Vitals/I&O Date Time Temp Pulse Resp B/P Pulse Ox O2 Delivery O2 Flow Rate FiO2 05/10/17 09:35 98 05/10/17 09:13 16 05/10/17 08:00 98.4 73 18 172/75 97 05/10/17 08:00 61 05/10/17 06:45 66 05/10/17 05:04 68 05/10/17 04:24 69 05/10/17 03:49 97.9 68 16 113/50 97 05/10/17 03:48 64 05/10/17 02:10 73 05/10/17 01:24 75 05/10/17 00:00 77 05/09/17 23:30 98.0 79 16 124/50 95 05/09/17 23:00 79 05/09/17 22:00 88 05/09/17 21:00 88 05/09/17 20:00 98.2 90 18 162/63 98 05/09/17 20:00 84 05/09/17 19:49 85 05/09/17 19:33 94 21 05/09/17 16:24 85 20 160/68 05/09/17 15:00 98.3 90 18 203/88 05/09/17 15:00 98.3 90 18 200/80 96 05/09/17 14:24 88 16 200/80 98 05/09/17 13:00 98.3 87 16 179/62 98 05/09/17 12:21 97 Room Air 05/10/17 05/10/17 05/10/17 07:00 15:00 23:00 Intake Total 840 ml Output Total 0 ml Balance 840 ml Exam: GENERAL: A&OX3, NAD, GCS15 SKIN: Warm and dry/ Right 1.1 cm X 1.2cm ulceration Right lateral ankle times 3 weeks/ No R/D/S MUSCULOSKELETAL: Right foot painful w/ movement/ redness improved since last assessment R DP with strong signal heard via Doppler Bilat LE warm/motor intact Laboratory Laboratory Tests Test 6/28/17 15:53 Hemoglobin 12.1 Hematocrit 36.6 (Cary Gonzales) Assessment and Plan Assessment: (1) PAD (peripheral artery disease) Status: Acute Plan Plan PT/OOB Picc Line insertion for Clindamycin 2W (total) therapy Apply Post op shoe to Right foot with ambulation and transfers Continue Pain control Cary RUIZ [facility] [phone] Discharge Planning D/C planning to [facility] (Cary Gonzales) Plan I agree with above after examination and lengthy conversation with patient and . Patient confused about what procedure she had done. concerned he could not take care of her at home. Discussed need for inpatient rehab. 1. need for IV abx 2. need for physical therapy 3. need for wound care 4. Strict control of blood sugar 5. Pain control DC planning based on above. Calin Flores DO (Calin Flores DO) Cary Gonzales May 10, 2017 11:27 Calin Flores DO May 11, 2017 04:49
[2017-05-10] MEDS: ACETAMINOPHEN/HYDROcodone 325 MG/5 MG TAB PO PRN ×2 (11:48→16:59)
[2017-05-10] MEDS: GABAPENTIN 100 MG CAP PO SCH ×2 (11:48→16:59)
--- NOTE | 2017-05-10 14:53 | RADRPT ---
EXAM DATE/TIME: 05/08/2017 00:00 [place] COMPARISON: No previous studies available for comparison. INDICATIONS : Foot pain TECHNIQUE: Four-cuff ankle and brachial pressures were obtained. Pulse cuff waveform tracings of the ankles were recorded, and ankle-brachial indices were calculated. PRESSURES (mmHg): Brachial (arm): Right iv site Left 167 Ankle: Right 117 Left 133 JAIRON: Right 0.70 Left 0.80 TBI: Right 0.00 Left 0.15 PULSED CUFF WAVEFORMS: Blunted monophasic tracings bilaterally CONCLUSION: Mildly diminished left ankle index and moderately diminished right ankle index. Severely compromised toe circulation. Jaime Gomez MD on May 10, 2017 at 14:49 Board Certified Radiologist. This report was verified electronically.
[2017-05-10] MEDS: VALSARTAN 160 MG TAB PO SCH (20:08)
[2017-05-10] MEDS: traZODone HCL 50 MG TAB PO SCH (20:08)
[2017-05-10] MEDS: ATORVASTATIN 10 MG TAB PO SCH (20:08)
[2017-05-10] MEDS: INSULIN DETEMIR 100 UNITS/ML VIAL SQ SCH (20:11)
--- NOTE | 2017-05-10 21:51 | MP ---
cc: RAMON DE ANDA MD DATE OF SURGERY 05/09/17 PREOPERATIVE DIAGNOSIS Right lower extremity tissue loss, peripheral arterial occlusive disease POSTOPERATIVE DIAGNOSIS Right lower extremity tissue loss, peripheral arterial occlusive disease PROCEDURE 1. Aortogram with right lower extremity angiogram. 2. Right popliteal angioplasty with a 4-mm balloon ATTENDING SURGEON Shorty De Anda MD RESIDENT SURGEON None ANESTHESIA Local with sedation INDICATIONS Mrs. Rosado is a 76-year-old female with peripheral arterial occlusive disease and right lower extremity tissue loss. She presented to the emergency department and was taken to the operating room for angiogram. There is no prior catheter based imaging available for my review. PROCEDURE IN DETAIL Informed consent was obtained from the patient and she was taken to the operating room and placed supine on the operating table. An appropriate time-out was taken to ensure the patient's identity, operative site and planned procedure. The administration of antibiotics was not necessary as this is a clean procedure without planned implantation of any foreign object. Everyone in the room agreed with time-out and we proceeded. Her bilateral groins were prepped and draped and the left groin was anesthetized with 1% lidocaine. A 21 gauge micropuncture needle was used to access the left common femoral artery. This was exchanged using Seldinger technique for a micropuncture sheath through which a 0.05 Glidewire was introduced. The micropuncture sheath was exchanged for a 4-Australian sheath and the VCF catheter was placed over the wire into the sheath. An aortogram pelvic arteriogram was obtained. The Glidewire was introduced and navigated down to the right common femoral artery and the catheter was advanced over this. A right lower extremity arteriogram was obtained. The patient was systemically heparinized with 3000 units of intravenous heparin. A 0.035 Lambert wire was introduced down to the right SFA and the catheter and 4-Australian sheath were removed and a 6-Australian 55 cm Ansell sheath was inserted and placed down to the proximal SFA. A 0.035 CXI catheter was then placed over the Lambert and the Lambert was changed for a FERN CUTTER wire. Using the 0.014 FERN CUTTER and 0.035 CXI, we were able to navigate down to the popliteal artery but could not traverse the lesion with a catheter. The wire passed quite nicely. The catheter was removed and exchanged for a 4 x 60 018 balloon which was used which crossed the lesion nicely and was used to angioplasty the lesion. The completion angiogram showed residual proximal stenosis that was again dilated with a 4-mm balloon. The completion angiogram showed excellent result without any recoil or extravasation or embolic complications. The wire catheter and sheath were removed and the groin was closed with AngioSeal. INTERPRETATION The patient has patent renal arteries, patent infrarenal aorta, common iliac arteries, hypogastric arteries and external iliac arteries bilaterally. None of these have any hemodynamically significant stenoses. The right common femoral artery and profunda are patent. The SFA is patent. The popliteal artery had a high grade near occlusive stenosis in the mid popliteal artery. This was successfully angioplastied. The below-knee popliteal artery was patent and the anterior tibial artery is the only runoff of the tibial vessels which continued onto a very diminutive dorsalis pedis artery. MD JERROD Hernadez/ /10:35 AM /9:48 PM
[2017-05-10] MEDS: ENALAPRILAT 1.25 MG/ML VIAL IV PUSH PRN (22:56)
[2017-05-11] VITALS (29 sets, daily range): BP systolic 126–191; BP diastolic 51–76; PULSE 56–97; RESP 16–20; TEMP 97.7–98.7; O2SAT 94–97
[2017-05-11] MEDS: MORPHINE SULFATE 4 MG/ML INJ IV PUSH PRN ×2 (00:04→06:07)
[2017-05-11] MEDS: ACETAMINOPHEN/HYDROcodone 325 MG/5 MG TAB PO PRN ×2 (01:14→20:15)
[2017-05-11] MEDS: cloNIDine HCL 0.1 MG TAB PO PRN ×2 (01:32→20:15)
[2017-05-11] MEDS: CLINDAMYCIN INJ 300 MG in SODIUM CHLORIDE 0.9% INJ 100 ML IV SCH ×3 (03:00→18:20)
[2017-05-11] MEDS: LEVOTHYROXINE SODIUM 50 MCG TAB PO SCH (06:04)
[2017-05-11] MEDS: INSULIN ASPART SUPPLEMENTAL SCALE SQ SCH ×4 (06:04→21:03)
[2017-05-11 07:18] LABS: BICARBONATE 24.8 MEQ/L (21.0-32.0)
[2017-05-11 08:02] LABS: HEMATOCRIT 28.8 % (35.0-46.0); MEAN CELL VOLUME 86.7 FL (80.0-100.0); MEAN CORPUSCULAR HEMOGLOBIN 28.8 PG (27.0-34.0); MEAN CORPUSCULAR HGB CONC 33.3 % (32.0-36.0); PLATELET COUNT 193 TH/MM3 (150-450); RED BLOOD COUNT 3.32 MIL/MM3 (4.00-5.30); RED CELL DISTRIBUTION WIDTH 13.5 % (11.6-17.2); REVIEW FLAG FINAL; WHITE BLOOD COUNT 9.2 TH/MM3 (4.0-11.0)
[2017-05-11] MEDS: OXYBUTYNIN CHLORIDE 5 MG TAB PO SCH ×2 (08:52→20:58)
[2017-05-11] MEDS: COLLAGENASE OINT 30 GM TUBE TOPICAL SCH (08:53)
[2017-05-11] MEDS: CARVEDILOL 3.125 MG TAB PO SCH (08:53)
[2017-05-11] MEDS: PARoxetine HCL 20 MG TAB PO SCH (08:53)
[2017-05-11] MEDS: GABAPENTIN 100 MG CAP PO SCH ×3 (08:53→17:01)
[2017-05-11] MEDS: CLOPIDOGREL 75 MG TAB PO SCH (08:53)
--- NOTE | 2017-05-11 09:04 | HHI.PR ---
Subjective Remarks Up in chair, getting ready to eat her breakfast Denies any acute chest pain or shortness of breath Denies any acute right lower extremity pain for now Alert (Jenny Yeung) Objective Objective Results - Vital Signs Date Time Temp Pulse Resp B/P Pulse Ox O2 Delivery O2 Flow Rate FiO2 05/11/17 07:39 97.7 65 19 126/59 96 05/11/17 06:40 62 05/11/17 05:30 63 05/11/17 04:04 80 05/11/17 04:04 98.1 69 16 148/51 96 05/11/17 03:41 76 05/11/17 02:59 97 05/11/17 02:00 79 05/11/17 01:00 97 05/11/17 00:16 98.3 75 18 186/66 97 05/11/17 00:16 67 05/10/17 23:00 72 05/10/17 22:00 60 05/10/17 21:00 62 05/10/17 20:23 70 05/10/17 20:23 97.6 59 16 130/57 99 05/10/17 18:00 60 05/10/17 17:32 16 05/10/17 17:00 62 05/10/17 16:00 62 05/10/17 16:00 98.6 73 16 134/69 98 05/10/17 15:00 64 05/10/17 14:00 72 05/10/17 13:00 70 05/10/17 12:00 64 05/10/17 12:00 98.6 68 16 135/60 100 05/10/17 11:00 68 05/10/17 10:00 76 05/10/17 09:35 98 05/10/17 09:13 16 I/O 05/10/17 05/10/17 05/10/17 05/11/17 05/11/17 05/11/17 07:00 15:00 23:00 07:00 15:00 23:00 Intake Total 840 ml 860 ml 1245 ml Output Total 0 ml 675 ml 500 ml Balance 840 ml 185 ml 745 ml Intake Oral 480 ml 620 ml 480 ml IV Total 360 ml 240 ml 765 ml Output Urine Total 0 ml 675 ml 500 ml # Voids 0 # Bowel Movements 0 (Jenny Yeung) Result Diagram: 05/11/17 0530 05/11/17 0530 ROS General: Fatigue, Weakness (mild improvement), Other (10 point ROS done positives noted) GI: BM (states none 1 week, constipation) Neuro/MS: Other (right lower extremity with open toed boot, dressing clean dry and intact, extremity warm) (Jenny Yeung) Physical Exam Physical Exam PHYSICAL EXAMINATION GENERAL: This is a well-developed, well-nourished female who appears to be in no acute distress. She is alert and awake, HEAD: Normocephalic Facial features appear symmetric. OROPHARYNGEAL: Oropharynx clear NECK: Supple. Trachea midline without deviation. CARDIAC: Regular rhythm, regular rate, S1 and S2 are heard. LUNGS: Clear to auscultation bilaterally. Volumes low to normal ABDOMEN: Soft, taut, no Bowel sounds soft. No rebound. EXTREMITIES: no edema. Pulses intact, right lower extremity warm, boot on dressing clean dry and intact. NEUROLOGICAL: Patient mood and affect appropriate SKIN:Warm and moist (Jenny Yeung) A/P Assessment and Plan 1) Ulcer of right ankle (2) PAD (peripheral artery disease) (3) Hx of myocardial infarction (4) History of CVA with residual deficit (5) HTN (hypertension) (6) Tobacco abuse (7) Hyperlipidemia (8) CAD (coronary artery disease) (9) Renal insufficiency 10 Constipation 76-year-old female with history of PAD, previous left leg bypass, tobacco abuse , diabetes type 2, coronary artery disease, CVA. Presented to emergency room with poorly healing ulcer to the right lateral malleolus and increasing leg pain 2 months. 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
[2017-05-11] MEDS ORDERED: SOD PHOSPHATE/SOD BIPHOSPHATE (ADULT) ENEMA 133ML RECTAL PRN (09:45)
[2017-05-11] MEDS ORDERED: MAGNESIUM CITRATE SOLN 300 ML BTL PO ONE (10:00)
--- NOTE | 2017-05-11 11:26 | PD.VS.PN ---
Subjective Procedure(s): Aortogram w/ R LE angiogram R popliteal CREDIT RATING INSPECTOR (4mm) L ALARM INSTALLATION TECHNICIAN Angioseal Subjective/Hospital Course Pt in bed alert in NAD Pt c/o discomfort to R foot Pt reported slightly improved pain Motor intact BLE warm Objective Laboratory Laboratory Tests Test 05/11/17 05:30 White Blood Count 9.2 Red Blood Count 3.32 Hemoglobin 9.6 Hematocrit 28.8 Mean Corpuscular Volume 86.7 Mean Corpuscular Hemoglobin 28.8 Mean Corpuscular Hemoglobin 33.3 Concent Red Cell Distribution Width 13.5 Platelet Count 193 Mean Platelet Volume 8.1 Sodium Level 139 Potassium Level 4.0 Chloride Level 107 Carbon Dioxide Level 24.8 Anion Gap 7 Blood Urea Nitrogen 25 Creatinine 1.59 Estimat Glomerular Filtration 31 Rate Random Glucose 129 Calcium Level 7.9 Assessment and Plan Assessment: (1) PAD (peripheral artery disease) Status: Acute Plan Patient more comfortable today. 1. need for IV abx 2. need for physical therapy 3. need for wound care 4. Strict control of blood sugar 5. Pain control DC planning based on above. Can be discharged with follow up in 2 weeks from our standpoint. Will sign off at this time. Calin Flores DO Discharge Planning D/C planning to [facility] Calin Flores DO May 11, 2017 11:26
[2017-05-11] MEDS: SODIUM CHLOR 0.9% 1000 ML INJ 1,000 ML IV SCH ×2 (11:49→22:24)
[2017-05-11] MEDS: MAGNESIUM HYDROXIDE SUSP 30 ML CUP PO SCH (18:48)
[2017-05-11] MEDS: ATORVASTATIN 10 MG TAB PO SCH (20:57)
[2017-05-11] MEDS: traZODone HCL 50 MG TAB PO SCH (20:58)
[2017-05-11] MEDS: VALSARTAN 160 MG TAB PO SCH (20:58)
[2017-05-11] MEDS: INSULIN DETEMIR 100 UNITS/ML VIAL SQ SCH (21:02)
[2017-05-12] VITALS (16 sets, daily range): BP systolic 123–151; BP diastolic 52–66; PULSE 51–66; RESP 14–18; TEMP 97.2–97.9; O2SAT 94–99
[2017-05-12] MEDS: ACETAMINOPHEN/HYDROcodone 325 MG/5 MG TAB PO PRN ×3 (03:31→16:40)
[2017-05-12] MEDS: CLINDAMYCIN INJ 300 MG in SODIUM CHLORIDE 0.9% INJ 100 ML IV SCH ×2 (03:31→10:58)
[2017-05-12] MEDS: LEVOTHYROXINE SODIUM 50 MCG TAB PO SCH (03:31)
[2017-05-12] MEDS: INSULIN ASPART SUPPLEMENTAL SCALE SQ SCH ×2 (05:53→16:41)
[2017-05-12] MEDS: MAGNESIUM HYDROXIDE SUSP 30 ML CUP PO SCH (09:00)
--- NOTE | 2017-05-12 09:40 | HHI.PR ---
Subjective Remarks Resting in bed, but is getting up in chair with assistance Right lower extremity warm to touch, pulse per Doppler Alert and awake, working with options for discharge planning to snf Afebrile Objective Objective Results - Vital Signs Date Time Temp Pulse Resp B/P Pulse Ox O2 Delivery O2 Flow Rate FiO2 05/12/17 05:00 58 05/12/17 04:00 63 05/12/17 04:00 97.2 62 18 142/65 94 05/12/17 03:00 54 05/12/17 02:00 58 05/12/17 01:00 58 05/12/17 00:00 62 05/12/17 00:00 97.9 65 18 123/52 96 05/11/17 23:00 60 05/11/17 22:00 62 05/11/17 21:00 66 05/11/17 20:00 98.7 81 20 191/76 97 05/11/17 20:00 77 05/11/17 19:00 78 05/11/17 18:40 82 05/11/17 17:43 81 05/11/17 16:00 88 05/11/17 15:15 98.1 77 16 140/62 97 05/11/17 15:00 82 05/11/17 14:20 67 05/11/17 13:10 74 05/11/17 12:00 66 05/11/17 11:06 97.9 72 16 136/56 97 05/11/17 11:00 72 05/11/17 10:00 70 I/O 05/11/17 05/11/17 05/11/17 05/12/17 05/12/17 05/12/17 07:00 15:00 23:00 07:00 15:00 23:00 Intake Total 1245 ml 900 ml 580 ml Output Total 500 ml 450 ml 200 ml Balance 745 ml 450 ml 380 ml Intake Oral 480 ml 900 ml 480 ml IV Total 765 ml 100 ml Output Urine Total 500 ml 450 ml 200 ml # Bowel Movements 2 2 Result Diagram: 05/11/1752905/11/17529 ROS General: Fatigue, Weakness, Other (10 point ROS done positives noted) Neuro/MS: Other (right lower extremity wound clean dry and intact) Physical Exam Physical Exam PHYSICAL EXAMINATION GENERAL: This is a thin elderly female who appears to be in no acute distress. She is alert and awake, eating fairly well HEAD: Normocephalic Facial features appear symmetric. OROPHARYNGEAL: Oropharynx clear NECK: Supple. Trachea midline without deviation. CARDIAC: Regular rhythm, regular rate, S1 and S2 are heard. LUNGS: Clear to auscultation bilaterally. ABDOMEN: Soft, nontender, no organomegaly or masses. Bowel sounds soft active EXTREMITIES: no edema. Pulses per Doppler on the right lower extremity NEUROLOGICAL: Patient mood and affect appropriate SKIN:Warm and moist Lower extremity wound, dressing change daily, clean dry and intact A/P Assessment and Plan 1) Ulcer of right ankle (2) PAD (peripheral artery disease) (3) Hx of myocardial infarction (4) History of CVA with residual deficit (5) HTN (hypertension) (6) Tobacco abuse (7) Hyperlipidemia (8) CAD (coronary artery disease) (9) Renal insufficiency 10 Constipation Vital signs reviewed, afebrile heart rate 58 and has maintained in the mid to high 50s without symptoms Labs reviewed, gentle hydration with IV fluids DC'd today. She is taking by mouth fluids well, anemia stable 76-year-old female with history of PAD, previous left leg bypass, tobacco abuse , diabetes type 2, coronary artery disease, CVA. Presented to emergency room with poorly healing ulcer to the right lateral malleolus and increasing leg pain 2 months. 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 Will need PICC line and CLindamycin X 2 weeks per vascular Okay to discharge to Level of care Pain management -Continue neurovascular check Renal insufficiency, mild increase in labs, probable secondary to her recent aortogram and dye used encourage patient to consume her by mouth fluids, doing well without nausea or vomiting Diabetes type 2, poorly controlled Accu-Cheks before meals and at bedtime with insulin therapy as needed Hypertension, blood pressure , controlled now with home meds We'll add Vasotec as needed for blood pressure 160 greater than 90 Hyperlipidemia Continue home medications History myocardial infarction, CAD, 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
--- NOTE | 2017-05-12 10:17 | PD.VS.PN ---
Subjective Subjective/Hospital Course Pt in bed alert in NAD Pt c/o discomfort to R foot but it is improved. Objective Vitals/I&O Date Time Temp Pulse Resp B/P Pulse Ox O2 Delivery O2 Flow Rate FiO2 05/12/17 10:07 96 21 05/12/17 05:00 58 05/12/17 04:00 63 05/12/17 04:00 97.2 62 18 142/65 94 05/12/17 03:00 54 05/12/17 02:00 58 05/12/17 01:00 58 05/12/17 00:00 62 05/12/17 00:00 97.9 65 18 123/52 96 05/11/17 23:00 60 05/11/17 22:00 62 05/11/17 21:00 66 05/11/17 20:00 98.7 81 20 191/76 97 05/11/17 20:00 77 05/11/17 19:00 78 05/11/17 18:40 82 05/11/17 17:43 81 05/11/17 16:00 88 05/11/17 15:15 98.1 77 16 140/62 97 05/11/17 15:00 82 05/11/17 14:20 67 05/11/17 13:10 74 05/11/17 12:00 66 05/11/17 11:06 97.9 72 16 136/56 97 05/11/17 11:00 72 05/12/17 05/12/17 05/12/17 07:00 15:00 23:00 Intake Total 580 ml Output Total 200 ml Balance 380 ml Physical Exam Right foot warm with strong signal over DP. Some erythema over the area right lateral ankle wound is clean with eschar and santyl in place and left great toe bed clean Assessment and Plan Assessment: (1) PAD (peripheral artery disease) Status: Acute Plan Patient more comfortable today. 1. need for IV abx 2. need for physical therapy 3. need for wound care 4. Strict control of blood sugar 5. Pain control DC planning based on above. Can be discharged with follow up in 2 weeks from our standpoint. Will sign off at this time. Calin Flores DO Discharge Planning D/C planning to [facility] Calin Flores DO May 12, 2017 10:17
[2017-05-12] MEDS: CLOPIDOGREL 75 MG TAB PO SCH (10:54)
[2017-05-12] MEDS: CARVEDILOL 3.125 MG TAB PO SCH (10:54)
[2017-05-12] MEDS: OXYBUTYNIN CHLORIDE 5 MG TAB PO SCH (10:54)
[2017-05-12] MEDS: GABAPENTIN 100 MG CAP PO SCH ×2 (10:54→15:42)
[2017-05-12] MEDS: PARoxetine HCL 20 MG TAB PO SCH (10:55)
[2017-05-12] MEDS: COLLAGENASE OINT 30 GM TUBE TOPICAL SCH (10:56)
[2017-05-12] MEDS ORDERED: CLIN300I2 IV (14:52)
[2017-05-12] MEDS ORDERED: TRAM50TA PO (14:52)
[2017-05-12] MEDS ORDERED: PLAV75TA29 PO (14:52)
[2017-05-12] MEDS ORDERED: GABA100C4 PO (14:52)
[2017-05-12] MEDS ORDERED: HYDR-3516 PO (14:52)
[2017-05-12] MEDS ORDERED: COLL30T TOPICAL (14:55)
[2017-05-13] MEDS ORDERED: ERGOCALCIFEROL (VIT D2) 50,000 UNIT CAP PO SCH (09:00)
== END 2017-05-12 16:44 | DRG 253 ==
LOC: NEPC 12:02 → NEDA 17:49 → NEPHCDU 20:53 → HCIS 05-09 09:07 → OBSVTOIN 05-10 10:09 → HCIS 05-10 17:42
PROVIDERS: ADMIT Specialist; ATTEND Specialist
PROC: 047M3ZZ Dilation of Right Popliteal Artery, Percutaneous Approach (ICD-10-PCS; principal; 2017-05-10)
PROC: B41F1ZZ Fluoroscopy of Right Lower Extremity Arteries using Low Osmolar Contrast (ICD-10-PCS; 2017-05-10)
DX: I73.9 Peripheral vascular disease, unspecified (principal); L97.319 Non-pressure chronic ulcer of right ankle with unspecified severity; E11.65 Type 2 diabetes mellitus with hyperglycemia; L03.115 Cellulitis of right lower limb; D64.9 Anemia, unspecified; E03.9 Hypothyroidism, unspecified; E78.5 Hyperlipidemia, unspecified; I10 Essential (primary) hypertension; I25.10 Atherosclerotic heart disease of native coronary artery without angina pectoris; Z95.1 Presence of aortocoronary bypass graft; Z95.5 Presence of coronary angioplasty implant and graft; I25.2 Old myocardial infarction; K59.00 Constipation, unspecified; N28.9 Disorder of kidney and ureter, unspecified; H91.90 Unspecified hearing loss, unspecified ear; F17.200 Nicotine dependence, unspecified, uncomplicated; Z85.038 Personal history of other malignant neoplasm of large intestine; Z86.73 Personal history of transient ischemic attack (TIA), and cerebral infarction without residual deficits
CPT/HCPCS: 36569; 37224; 75625; 75710; 76937; 80048; 82948; 83735; 85014; 85018; 85025; 85027; 85610; 85730; 93922; 93998; C1769; G0269; G0378; J0360; J1644; J1815; J2250; J2270; J3010; J7030; L3260; Q9967

== ENCOUNTER 2017-06-18 07:49 | Observation (INO) | payer OTHER ==
[~2017-06-18] VITALS: Ht 167.6 cm; Wt 75.3 kg
[~2017-06-18 07:49] MED LIST: CARV3.125 PO; CLIN300I2 IV; COLL30T TOPICAL; ERGO1CAP30 PO; GABA100C4 PO; HYDR-3516 PO; LANTUS2P SQ; LEVO50TA4 PO; OXYB5TAB10 PO; PAXI20TA10 PO; PLAV75TA29 PO; ROSU5 PO; TRAM50TA PO; TRAZ100T6 PO; VALS1TAB70 PO
[2017-06-18] MEDS ORDERED: INSU100V SQ (08:17)
[2017-06-18 08:24] VITALS: BP 176/73; PULSE 95; RESP 16; TEMP 98.2; O2SAT 100
[2017-06-18 08:52] LABS: BASOPHIL # 0.1 TH/MM3 (0-0.2); BASOPHIL % 0.9 % (0.0-2.0); EOSINOPHIL # 0.4 TH/MM3 (0-0.4); EOSINOPHIL % 2.6 % (0.0-4.0); HEMATOCRIT 31.3 % (35.0-46.0); HEMO FLAGS DIFF FINAL; LYMPH % 9.9 % (9.0-44.0); LYMPHOCYTE # 1.4 TH/MM3 (1.0-4.8); MEAN CELL VOLUME 85.5 FL (80.0-100.0); MEAN CORPUSCULAR HEMOGLOBIN 27.8 PG (27.0-34.0); MEAN CORPUSCULAR HGB CONC 32.5 % (32.0-36.0); MONO % 7.6 % (0.0-8.0); PLATELET COUNT 429 TH/MM3 (150-450); RED BLOOD COUNT 3.66 MIL/MM3 (4.00-5.30); RED CELL DISTRIBUTION WIDTH 15.1 % (11.6-17.2); WHITE BLOOD COUNT 13.9 TH/MM3 (4.0-11.0)
[2017-06-18] MEDS ORDERED: SODIUM BICARBONATE 100 MEQ in D5W 1000 ML IV SCH (09:00)
[2017-06-18 09:19] LABS: BICARBONATE 20.5 MEQ/L (21.0-32.0)
[2017-06-18 09:27] LABS: POTASSIUM 4.8 MEQ/L (3.5-5.1)
[2017-06-18] MEDS ORDERED: VERAPAMIL HCL 5 MG/2 ML VIAL ONE (09:49)
[2017-06-18] MEDS ORDERED: HEPARIN SODIUM - IV 10,000 UNITS/10 ML VIAL ONE (09:49)
[2017-06-18] MEDS ORDERED: MIDAZOLAM HCL 5 MG/ML VIAL (1 ML) ONE (09:50)
[2017-06-18] MEDS ORDERED: IOHEXOL 300 MG/ML 50 ML BTL (for RAD DIAG) OTHER ONE (10:19)
[2017-06-18] MEDS ORDERED: IOHEXOL 300 MG/ML 100 ML BTL (for Rad CT) OTHER ONE (10:21)
[2017-06-18] MEDS ORDERED: ONDANSETRON HCL 4 MG/2 ML VIAL ONE (10:42)
--- NOTE | 2017-06-18 10:58 | HHI.PR ---
Immediate Post Op Note Procedure Date: Jun 18, 2017 Pre Op Diagnosis: PAD, R LE Post Op Diagnosis: PAD, R LE Surgeon: Oral De Anda Quality Assurance Assistant(s): none Procedure: Aortogram w/ R LE angiogram Findings: high grade R popliteal calcific stenosis Additional Information: Pt with intractible nausea so case aborted Complications: none Specimen(s) removed: none Estimated blood loss: 5mL Anesthesia: MAC Drains: None IVF Patient to: Other (DOCU) Patient Condition: Good Date/Time of Procedure: SEE SURGICAL CARE RECORD Oral De Anda MD Jun 18, 2017 10:58
[2017-06-18] MEDS ORDERED: ACETAMINOPHEN/HYDROcodone 325 MG/5 MG TAB PO PRN (11:00)
[2017-06-18] MEDS ORDERED: diphenhydrAMINE HCL 50 MG/ML VIAL ONE (11:03)
[2017-06-18] MEDS ORDERED: GLUCAGON 1 MG/ML VIAL OTHER PRN (11:15)
[2017-06-18] MEDS ORDERED: DEXTROSE 50% IN WATER 50 ML VIAL(D50) IV PRN (11:15)
[2017-06-18] MEDS ORDERED: ENOXAPARIN SODIUM 30 MG/0.3 ML SYRINGE SQ SCH (12:00)
[2017-06-18] MEDS: INSULIN ASPART SUPPLEMENTAL SCALE SQ SCH ×2 (16:00→21:00)
[2017-06-18 20:00] VITALS: BP 185/74; PULSE 86; RESP 20; TEMP 99.8; O2SAT 98
[2017-06-18] MEDS: ATORVASTATIN 10 MG TAB PO SCH (22:20)
[2017-06-18] MEDS: VALSARTAN 160 MG TAB PO SCH (22:20)
[2017-06-19] VITALS (7 sets, daily range): BP systolic 168–191; BP diastolic 70–79; PULSE 80–95; RESP 16–20; TEMP 98.1–99.8; O2SAT 96–99
[2017-06-19] MEDS ORDERED: METOPROLOL TARTRATE 5 MG/5 ML VIAL IV PUSH SCH (01:30)
[2017-06-19] MEDS: INSULIN ASPART SUPPLEMENTAL SCALE SQ SCH ×4 (06:09→20:50)
--- NOTE | 2017-06-19 07:07 | PD.VS.PN ---
Subjective Subjective/Hospital Course Pt adm for observation after aborted angiogram yesterday for intractable N/V and concern for potential aspiration Pt feels much better now, no N/V overnight and CE negative. Looks terrific. Slept well. Objective Vitals/I&O Date Time Temp Pulse Resp B/P Pulse Ox O2 Delivery O2 Flow Rate FiO2 06/19/17 04:00 98.7 86 18 184/75 96 06/19/17 00:00 99.8 95 18 191/79 97 06/18/17 20:00 99.8 86 20 185/74 98 06/18/17 11:25 98 Room Air 06/18/17 08:24 98.2 95 16 176/73 100 Physical Exam R foot ischemic. L groin soft, no hematoma Laboratory Laboratory Tests Test 06/18/17 08:19 White Blood Count 13.9 Red Blood Count 3.66 Hemoglobin 10.2 Hematocrit 31.3 Mean Corpuscular Volume 85.5 Mean Corpuscular Hemoglobin 27.8 Mean Corpuscular Hemoglobin 32.5 Concent Red Cell Distribution Width 15.1 Platelet Count 429 Mean Platelet Volume 7.8 Neutrophils (%) (Auto) 79.0 Lymphocytes (%) (Auto) 9.9 Monocytes (%) (Auto) 7.6 Eosinophils (%) (Auto) 2.6 Basophils (%) (Auto) 0.9 Neutrophils # (Auto) 11.0 Lymphocytes # (Auto) 1.4 Monocytes # (Auto) 1.1 Eosinophils # (Auto) 0.4 Basophils # (Auto) 0.1 CBC Comment DIFF FINAL Differential Comment Prothrombin Time 11.0 Prothromb Time International 1.0 Ratio Sodium Level 137 Potassium Level 4.8 Chloride Level 105 Carbon Dioxide Level 20.5 Anion Gap 12 Blood Urea Nitrogen 18 Creatinine 1.62 Estimat Glomerular Filtration 31 Rate Random Glucose 197 Calcium Level 8.6 Total Creatine Kinase 66 Troponin I 0.02 Assessment and Plan Plan 1. potential reaction to sedation - back to baseline now 2. Plan for R LE angiogram under [facility] tomorrow (Sun) NPO after MN MIVF with HCO3 3. Anticipate d/c after angiogram Discharge Planning tomorrow or Oral De Anda MD Jun 19, 2017 07:07
[2017-06-19 07:24] LABS: HEMATOCRIT 28.9 % (35.0-46.0); MEAN CELL VOLUME 84.4 FL (80.0-100.0); MEAN CORPUSCULAR HEMOGLOBIN 27.5 PG (27.0-34.0); MEAN CORPUSCULAR HGB CONC 32.6 % (32.0-36.0); PLATELET COUNT 364 TH/MM3 (150-450); RED BLOOD COUNT 3.42 MIL/MM3 (4.00-5.30); RED CELL DISTRIBUTION WIDTH 14.7 % (11.6-17.2); REVIEW FLAG FINAL; WHITE BLOOD COUNT 16.2 TH/MM3 (4.0-11.0)
[2017-06-19 07:48] LABS: BICARBONATE 25.4 MEQ/L (21.0-32.0); POTASSIUM 3.7 MEQ/L (3.5-5.1)
[2017-06-19] MEDS: PARoxetine HCL 20 MG TAB PO SCH (08:15)
[2017-06-19] MEDS ORDERED: CLOPIDOGREL 75 MG TAB PO SCH (09:00)
[2017-06-19] MEDS: ENOXAPARIN SODIUM 30 MG/0.3 ML SYRINGE SQ SCH (09:05)
--- NOTE | 2017-06-19 15:36 | EKG ---
Date Performed: 06/18/2017 Time Performed: 22:38:10 PTAGE: 76 years EKG: Sinus rhythm POSSIBLE LEFT ATRIAL ENLARGEMENT BORDERLINE ECG NO PREVIOUS TRACING DOCTOR: Sammie Alvarado Interpretating Date/Time 06/19/2017 15:34:12
[2017-06-19] MEDS: VALSARTAN 160 MG TAB PO SCH (20:50)
[2017-06-19] MEDS: ATORVASTATIN 10 MG TAB PO SCH (20:50)
[2017-06-19] MEDS: SODIUM BICARBONATE 8.4% INJ 50 MEQ in DEXTROSE 5% IN WATE 1000ML INJ 1,000 ML IV SCH ×2 (23:16)
[2017-06-20] VITALS (9 sets, daily range): BP systolic 117–202; BP diastolic 53–84; PULSE 72–95; RESP 16–20; TEMP 97.9–99.4; O2SAT 95–100
[2017-06-20] MEDS: INSULIN ASPART SUPPLEMENTAL SCALE SQ SCH ×4 (05:36→22:28)
[2017-06-20] MEDS: PARoxetine HCL 20 MG TAB PO SCH (09:00)
[2017-06-20] MEDS: ENOXAPARIN SODIUM 30 MG/0.3 ML SYRINGE SQ SCH (10:00)
--- NOTE | 2017-06-20 11:38 | MP ---
cc: RAMON DE ANDA MD DATE OF SURGERY: 06/18/2017 PREOPERATIVE DIAGNOSIS Right lower extremity rest pain and tissue loss, recurrent stenosis. POSTOPERATIVE DIAGNOSIS Right lower extremity rest pain and tissue loss, recurrent stenosis. PROCEDURE Right lower extremity angiogram. ATTENDING SURGEON Dr. Ramon De Anda. ANESTHESIA Local with sedation. INDICATIONS Mrs. Rosado is a lady who has right lower extremity tissue loss. She underwent a popliteal angioplasty. The tissue loss is not healed and on postoperative surveillance duplex several weeks later she has recurrent stenosis and she is taken to the operating room for angiographic evaluation and treatment. There is no prior catheter-based imaging since the duplex imaging was identified. Intraoperatively it was found the patient had recurrent popliteal stenosis. However, the procedure was aborted secondary to intractable nausea and emesis, in concern for aspiration with prolonged accumbancy. DESCRIPTION OF PROCEDURE Informed consent was obtained from the patient. She was taken to the operating room and placed supine on the operating table. Appropriate time-out was taken to ensure the patient's identity, operative site and planned procedure. The administration of antibiotics was not necessary as this is a clean procedure without planned implantation of any foreign object. Everyone in the room agreed with time-out and we proceeded. A 21 gauge micropuncture needle was used to access the left common femoral artery after locally anesthetizing the left groin. This was exchanged using Seldinger technique for micropuncture sheath which a 0.035 Glidewire was introduced, micropuncture sheath was exchanged for a 5 and then 6-Indonesian sheath. A VCF catheter was placed over the wire into the sheath and using the VCF and glide we were able to navigate down to the right common femoral artery. A right lower extremity arteriogram was obtained and a Lambert wire was then introduced and passed down to the mid SFA over which a 6-Indonesian Arnoldo 55 cm sheath was introduced. We then exchanged the Lambert for a Viper wire and using the Viper wire and CXI catheter we were able to navigate past the popliteal stenosis. At this point the patient became severely nauseated and in fact had two bouts of emesis without any ladonna aspiration. However, because of her persistent nausea that was refractory to medical therapy, we elected to abort the procedure. The wire, catheter and sheath were removed and the wound was closed with AngioSeal. There were no complications. I was present and scrubbed and performed the entire procedure. INTERPRETATION OF IMAGES The patient has a patent right common femoral artery, profunda and SFA. The distal SFA is patent. The popliteal artery has a high-grade calcific stenosis in the middle aspect of the popliteal artery and the anterior tibial artery has dominant runoff to the foot. MD JERROD Hernadez/AYANNA /9:46 PM /11:14 AM AMANDA
[2017-06-20] MEDS ORDERED: FAMOTIDINE 20 MG/2 ML VIAL ONE (12:04)
[2017-06-20] MEDS ORDERED: HEPARIN SODIUM - IV 10,000 UNITS/10 ML VIAL ONE (13:49)
[2017-06-20] MEDS ORDERED: HEPARIN SODIUM - SQ 10,000 UNITS/ML VIAL ONE (13:50)
--- NOTE | 2017-06-20 14:52 | HHI.PR ---
Immediate Post Op Note Procedure Date: Jun 20, 2017 Pre Op Diagnosis: PAD, CLI with R LE tissue loss Post Op Diagnosis: PAD, CLI with R LE tissue loss Surgeon: Oral De Anda Emergency Vehicle Dispatcher(s): Chey Walters Procedure: 1. R LE angiogram 2. R popliteal artery orbital atherectomy and [employer]INE PL[employer] OPER[employer] (drug-coated balloon) 3. L CHEMICAL PREPARER Angioseal Findings: High grade recurrent popliteal stenosis, successful atherectomy and [employer]INE PLANT OPERATOR AT runoff to foot Complications: none Specimen(s) removed: none Estimated blood loss: 10mL Anesthesia: General Drains: None Patient to: PACU Date/Time of Procedure: SEE SURGICAL CARE RECORD Oral De Anda MD Jun 20, 2017 14:52
[2017-06-20] MEDS ORDERED: DO NOT ADM ANY ANTICOAGULANT DRUGS PRN (15:05)
[2017-06-20] MEDS ORDERED: *LABETALOL HCL 100 MG/20 ML VIAL PERIprocedural Use ONLY ONE (15:12)
[2017-06-20] MEDS ORDERED: fentaNYL CITRATE 250 MCG/5 ML AMP ONE (15:15)
[2017-06-20] MEDS ORDERED: CLOPIDOGREL 75 MG TAB PO ONE (16:00)
[2017-06-20] MEDS: SODIUM BICARBONATE 8.4% INJ 50 MEQ in DEXTROSE 5% IN WATE 1000ML INJ 1,000 ML IV SCH ×2 (22:00)
[2017-06-20] MEDS: VALSARTAN 160 MG TAB PO SCH (22:29)
[2017-06-20] MEDS: ATORVASTATIN 10 MG TAB PO SCH (22:29)
[2017-06-21] VITALS: BP 130/57; PULSE 84; RESP 20; TEMP 99.4; O2SAT 97
[2017-06-21 04:00] VITALS: BP 131/64; PULSE 88; RESP 18; TEMP 99.4; O2SAT 97
[2017-06-21] MEDS: INSULIN ASPART SUPPLEMENTAL SCALE SQ SCH ×2 (05:53→12:24)
[2017-06-21 08:01] VITALS: BP 175/76; PULSE 87; RESP 18; TEMP 99.7; O2SAT 96
[2017-06-21] MEDS: ENOXAPARIN SODIUM 30 MG/0.3 ML SYRINGE SQ SCH (08:47)
[2017-06-21] MEDS: PARoxetine HCL 20 MG TAB PO SCH (08:47)
[2017-06-21] MEDS ORDERED: CLOPIDOGREL 75 MG TAB PO SCH (09:00)
[2017-06-21] MEDS ORDERED: CEPH-460 PO (09:09)
--- NOTE | 2017-06-21 09:21 | PD.VS.DC ---
Discharge Summary Admission Date: Jun 18, 2017 at 22:01 Discharge Date: Jun 21, 2017 Admission Diagnosis: (1) PAD (peripheral artery disease) Discharge Diagnosis: (1) PAD (peripheral artery disease) Status: Acute Brief History from admission Pt c/o worsening RLE claudication and worsening/ non healing right foot wounds Procedure(s): RLE angiogram Significant Findings GENERAL: Alert in nad, GCS 15, NAD SKIN: Warm and dry/ bilat groins w/o hematoma, R great toe red with purulent drainage/ Right heel with redness around the ulceration borders with purulent drainage + DP/PT right with strong phasic signals BLE warm w/ motor intact No Edema Pt denies pain Laboratory Tests Test 06/19/17 06:33 White Blood Count 16.2 TH/MM3 (4.0-11.0) Red Blood Count 3.42 MIL/MM3 (4.00-5.30) Hemoglobin 9.4 GM/DL (11.6-15.3) Hematocrit 28.9 % (35.0-46.0) Creatinine 1.36 MG/DL (0.50-1.00) Estimat Glomerular Filtration 38 ML/MIN (>89) Rate Random Glucose 203 MG/DL (74-106) Calcium Level 8.4 MG/DL (8.5-10.1) Hospital Course: Pt with a hx of worsening RLE claudication and worsening/ non healing right foot wounds Pt adm for observation after aborted angiogram yesterday for intractable N/V and concern for potential aspiration no N/V overnight and CE negative. Pt s/o RLE angiogram Pt reported she feels better this am Increased redness to both ulcerations Right foot Pt afebrile Allergies Coded Allergies Type Severity Reaction Last Updated Verified Sulfa Allergy Unknown 05/08/17 Yes // 06:00 18:00 06:00 18:00 06:00 18:00 Intake Total 380 ml 437 ml 1000 ml 1622 ml 302 ml Output Total 400 ml Balance 380 ml 37 ml 1000 ml 1622 ml 302 ml Intake Oral 380 ml 120 ml 1320 ml IV Total 317 ml 100 ml 302 ml 302 ml Other 900 ml Output Urine Total 400 ml # Voids 3 4 1 6 # Bowel Movements 1 2 1 4 Laboratory Tests Test 06/19/17 06:33 White Blood Count 16.2 TH/MM3 Red Blood Count 3.42 MIL/MM3 Hemoglobin 9.4 GM/DL Hematocrit 28.9 % Mean Corpuscular Volume 84.4 FL Mean Corpuscular Hemoglobin 27.5 PG Mean Corpuscular Hemoglobin 32.6 % Concent Red Cell Distribution Width 14.7 % Platelet Count 364 TH/MM3 Mean Platelet Volume 7.5 FL Sodium Level 136 MEQ/L Potassium Level 3.7 MEQ/L Chloride Level 103 MEQ/L Carbon Dioxide Level 25.4 MEQ/L Anion Gap 8 MEQ/L Blood Urea Nitrogen 11 MG/DL Creatinine 1.36 MG/DL Estimat Glomerular Filtration 38 ML/MIN Rate Random Glucose 203 MG/DL Calcium Level 8.4 MG/DL Procedure Category Date Status Time Heparin Inj (Heparin MED 06/18/17 Complete Inj) 09:49 Fentanyl Inj MED 06/18/17 Complete (Fentanyl Inj) 09:49 Verapamil Inj MED 06/18/17 Complete (Isoptin Inj) 09:49 Midazolam Inj (Versed MED 06/18/17 Complete Inj) 09:50 *Heparin Inj MED 06/18/17 Complete (*Heparin Inj 10:19 Iohexol 300 Inj MED 06/18/17 Complete (Omnipaque 300 Inj) 10:19 Iohexol 300 Inj (Rad MED 06/18/[address]) (Omnipaque 300 10:21 Fentanyl Inj MED 06/18/17 Complete (Fentanyl Inj) 10:33 Ondansetron Inj MED 06/18/17 Complete (Zofran Inj) 10:42 Code Status CODE 06/18/17 Transmitted 10:59 Vital Signs (Adult) LISETH 06/18/17 Complete 10:59 Cancer Program Coordinator / LISETH 06/18/17 In Process Telemetry 10:59 Activity Oob Ad Anna LISETH 06/19/17 In Process 10:59 Activity Bed Rest LISETH 06/18/17 In Process 10:59 Precautions LISETH 06/18/17 In Process 10:59 Wound LISETH 06/18/17 In Process 10:59 Diet Heart Healthy DIET 06/18/17 Complete Lunch Basic Metabolic Panel LAB 06/19/17 Complete (Bmp) 06:00 Cbc No Diff, Includes LAB 06/19/17 Complete Plts 06:00 Electrocardiogram CAV 06/18/17 Resulted Case Management CONS 06/18/17 Transmitted Consult Consult Pt Eval & PT 06/18/17 Logged Treat 10:59 Ckmb (Isoenzyme) LAB 06/18/17 Complete Profile 10:59 Creatine Kinase (Cpk) LAB 06/18/17 Complete 10:59 Troponin I LAB 06/18/17 Complete 10:59 Clopidogrel (Plavix) MED 06/19/17 Complete 09:00 Acetamin-Hydrocod MED 06/18/17 In Process 325-5 Mg ([place] 5-325 11:00 Paroxetine (Paxil) MED 06/19/17 In Process 09:00 Valsartan (Diovan) MED 06/18/17 In Process 21:00 Atorvastatin (Lipitor) MED 06/18/17 In Process 21:00 Blood Glucose Goal LISETH 06/18/17 In Process (Criteria) 11:02 Hypoglycemia 70 Mg/Dl LISETH 06/18/17 In Process Or < 11:[address]: Nani CHILDERS 06/18/17 In Process 11:02 Dextrose 50% In [place] MED 06/18/17 In Process (Vial) Inj (D50w (Vi 11:15 Glucagon Inj MED 06/18/17 In Process (Glucagon Inj) 11:15 Insulin Aspart MED 06/18/17 In Process Supplemtl Scale 16:00 Diphenhydramine Inj MED 06/18/17 Complete (Benadryl Inj) 11:03 Enoxaparin Inj MED 06/19/17 In Process (Lovenox Inj) 10:00 Place In Observation ADMITTING 06/18/17 Transmitted Patient Transfer ADMITTING 06/18/17 Transmitted Metoprolol Tartrate MED 06/19/17 Complete Inj (Lopressor Inj) 01:30 Dextrose 5% In MED 06/19/17 In Process Wate... W/Sodium 22:00 Npo After Midnight W/ DIET 06/20/17 Complete Po Meds Breakfast Diet Heart Healthy DIET 06/19/17 Complete Lunch Famotidine Inj MED 06/20/17 Complete (Pepcid Inj) 12:04 Endovascular Cath CATH 06/20/17 Complete Heparin Inj (Heparin MED 06/20/17 Complete Inj) 13:49 Heparin Inj (Heparin MED 06/20/17 Complete Inj) 13:50 Place In Observation ADMITTING 06/20/17 Transmitted Activity Bed Rest [facility] 06/20/17 In Process 14:52 Diet Heart Healthy DIET 06/20/17 Transmitted Dinner Resp Oxygen Paramjit C RSP 06/20/17 Logged Titrat 1-4 L Vital Signs (Adult) [facility] 06/20/17 In Process 14:52 Notify Deja CHILDERS 06/20/17 In Process 14:52 Cancer Program Coordinator / [facility] 06/20/17 In Process Telemetry 14:[address] Rivera [facility] 06/20/17 In Process 14:52 Clopidogrel (Plavix) MED 06/20/17 Complete 16:00 Clopidogrel (Plavix) MED 06/21/17 In Process 09:00 *Labetalol Inj MED 06/20/17 Complete (*Trandate Inj 15:12 Fentanyl Inj MED 06/20/17 Complete (Fentanyl Inj) 15:15 Class Iv [facility]17 Complete MIN General/Pacu [facility] 06/20/17 Complete Post Anesthesia Oxygen [facility] 06/20/17 Complete Bedside Glucose [facility] 06/20/17 Complete Misc Nursing MED 06/20/17 In Process Information 15:05 Attending Discharge DISCHARGE 06/21/17 Transmitted Order Vital Signs Date Time Temp Pulse Resp B/P Pulse Ox O2 Delivery O2 Flow Rate FiO2 06/21/17 08:01 99.7 87 18 175/76 96 06/21/17 04:00 99.4 88 18 131/64 97 06/21/17 00:00 99.4 84 20 130/57 97 06/20/17 23:50 Room Air 06/20/17 20:15 79 06/20/17 20:00 Room Air 06/20/17 20:00 98.3 79 20 172/75 98 117/53 06/20/17 16:57 97.9 72 18 165/77 99 06/20/17 16:00 85 06/20/17 15:45 97.8 67 12 164/71 100 Nasal Cannula 2 06/20/17 15:30 67 16 159/69 100 06/20/17 15:15 78 12 185/80 100 Nasal Cannula 2 06/20/17 15:04 97.8 80 10 190/77 100 Nasal Cannula 2 06/20/17 12:00 98.6 86 20 188/81 95 06/20/17 08:00 98.8 91 19 202/84 97 194/76 06/20/17 06:12 178/75 06/20/17 04:00 99.4 88 16 190/77 99 06/20/17 04:00 Room Air 06/20/17 00:00 98.8 95 16 158/65 100 06/19/17 23:53 Room Air 06/19/17 20:21 80 06/19/17 20:00 98.6 83 20 186/77 98 06/19/17 20:00 Room Air 06/19/17 16:00 98.8 80 16 168/70 99 06/19/17 12:00 99.2 82 16 169/71 99 06/19/17 08:00 98.1 81 16 174/74 99 06/19/17 04:00 98.7 86 18 184/75 96 06/19/17 00:00 99.8 95 18 191/79 97 06/18/17 20:00 99.8 86 20 185/74 98 06/18/17 11:25 98 Room Air Discharge Condition: Good Discharge Disposition: Discharge to SNF Discharge Instructions: Continue wound care therapy to ulcerations Continue PT Follow up next week in our OPC at scheduled appointment time Call the office with any questions or concerns Cary RUIZ [facility] [phone] Any questions or concerns: Call [facility] at [facility] [phone] Cary Gonzales Jun 21, 2017 09:21
--- NOTE | 2017-06-21 09:30 | PD.VS.PN ---
Subjective POD #: 1 Procedure(s): RLE angiogram Subjective/Hospital Course Pt alert in nad Eating breakfast Pt denies pain LE warm w/ motor intact Pt stated she does not want to return to [facility] for Rehab services Objective Vitals/I&O Date Time Temp Pulse Resp B/P Pulse Ox O2 Delivery O2 Flow Rate FiO2 06/21/17 08:01 99.7 87 18 175/76 96 06/21/17 04:00 99.4 88 18 131/64 97 06/21/17 00:00 99.4 84 20 130/57 97 06/20/17 23:50 Room Air 06/20/17 20:15 79 06/20/17 20:00 Room Air 06/20/17 20:00 98.3 79 20 172/75 98 117/53 06/20/17 16:57 97.9 72 18 165/77 99 06/20/17 16:00 85 06/20/17 15:45 97.8 67 12 164/71 100 Nasal Cannula 2 06/20/17 15:30 67 16 159/69 100 06/20/17 15:15 78 12 185/80 100 Nasal Cannula 2 06/20/17 15:04 97.8 80 10 190/77 100 Nasal Cannula 2 06/20/17 12:00 98.6 86 20 188/81 95 06/21/17 06/21/17 06/21/17 07:00 15:00 23:00 Intake Total 662 ml Balance 662 ml Exam: GENERAL: Alert in nad, GCS 15, NAD SKIN: Warm and dry/ bilat groins w/o hematoma, R great toe red with purulent drainage/ Right heel with redness around the ulceration borders with purulent drainage + DP/PT right with strong phasic signals BLE warm w/ motor intact No Edema Pt denies pain Assessment and Plan Assessment: (1) PAD (peripheral artery disease) Status: Acute Plan Plan Pt reported a good night last night Pt to be D/C today to Rehab D/w Case management patient concerns of not wanting to return to [facility] Keflex Rx written Cary RUIZ [facility] [employer] [phone] Discharge Planning Today to a SNF for rehab Cary Gonzales Jun 21, 2017 09:30
[2017-06-21 12:01] VITALS: BP 189/81; PULSE 86; RESP 19; TEMP 97.8; O2SAT 99
--- NOTE | 2017-06-21 12:53 | HHI.FF ---
Face to Face Verification Diagnosis: (1) PAD (peripheral artery disease) Home Health Nursing Order: Medical education Wound care and dressing changes Instructions: Cleanse R foot ulcerations daily with NS Apply santyl to Right ankle ulceration daily then 4X4 then tape Apply dry dressing to Right great toe, change daily I have seen patient Sharri Rosado on 06/21/17. My clinical findings support the need for the requested home health care services because: Pt is medically stable and will need home health services for optimal healing Ltd mobility - disease progression Patient has SOB I certify that my clinical findings support that this patient is homebound because:Pt is medically stable and will need home health services for optimal healing and wound care management Post-op weakness Cary Gonzales Jun 21, 2017 12:53 Oral De Anda MD Jun 21, 2017 14:59
[2017-06-21 12:56] VITALS: O2SAT 98
--- NOTE | 2017-06-22 10:56 | MP ---
cc: RAMON DE ANDA MD DATE OF SURGERY 06/20/2017 PREOPERATIVE DIAGNOSIS Right lower extremity tissue loss from PAD. POSTOPERATIVE DIAGNOSIS Right lower extremity tissue loss from PAD. PROCEDURE Right lower extremity angiogram with popliteal orbital atherectomy and angioplasty with a 4 mm drug coated balloon. MEDICATIONS Ramon De Anda MD SPANISH INSTRUCTOR Chey Walters ANESTHESIA General INDICATIONS Ms. Rosado is a 76-year later right extremity tissue loss. She underwent a right popliteal angioplasty several months ago by duplex. She has a recurrent stenosis and is taken to the operating room for endovascular treatment. DESCRIPTION OF PROCEDURE Informed consent was obtained from the patient. She was taken to the operating room, placed supine on the operating table and an appropriate time-out was taken to ensure the patient's identity, operative site and planned procedure. The administration of antibiotics was not necessary since this was a clean procedure without planned implantation of any foreign object. Everyone in the room agreed with the time-out and we proceeded. Her bilateral groins were prepped and draped and the left groin was anesthetized was accessed with an 21 gauge micropuncture needle and this was exchanged using Seldinger technique for a micropuncture sheath through which a 0.035 Glidewire was introduced. The micropuncture sheath was exchanged for a 6-Surinamese sheath and a RIM catheter was placed over the wire into the sheath. The Glidewire was navigated down to the right common femoral artery. The patient systemically heparinized with 5000 inches IV heparin. A Lambert wire was then introduced and then RIM catheter was removed and the 6-Surinamese sheath was removed and the 6-Surinamese Arnoldo sheath was introduced. The CXI catheter was then advanced down to the distal SFA and the Lambert was removed. A 0.014 Viper wire was then introduced and passed down to the anterior tibial artery. All this was confirmed angiographically. A 1.5-mm crown CSI device was introduced and the popliteal artery was atherectomized without difficulty. The device was removed and a 4 mm drug coated balloon was then used to angioplasty the popliteal artery. The completion angiogram showed an excellent result without any recoil or extravasation. The wire, catheter, and sheath were removed. There were no complications. I was present and scrubbed and performed the entire procedure. MD JERROD Hernadez/ARETHA /5:12 PM /10:36 AM MTDD
== END 2017-06-21 13:53 | disposition home health service (06) ==
LOC: HSDC 07:49 → HDIC 07:50 → HSDC 22:00 → N04B 22:01
PROVIDERS: ADMIT Surgery; ATTEND Surgery
PROC: 047M3D1 Dilation of Right Popliteal Artery with Intraluminal Device, using Drug-Coated Balloon, Percutaneous Approach (ICD-10-PCS; principal; 2017-06-20 12:00)
DX: I70.201 Unspecified atherosclerosis of native arteries of extremities, right leg (principal); I73.9 Peripheral vascular disease, unspecified; L97.519 Non-pressure chronic ulcer of other part of right foot with unspecified severity; Z53.9 Procedure and treatment not carried out, unspecified reason; R11.2 Nausea with vomiting, unspecified; I12.9 Hypertensive chronic kidney disease with stage 1 through stage 4 chronic kidney disease, or unspecified chronic kidney disease; E11.22 Type 2 diabetes mellitus with diabetic chronic kidney disease; N18.9 Chronic kidney disease, unspecified; E78.5 Hyperlipidemia, unspecified; E03.9 Hypothyroidism, unspecified; D64.9 Anemia, unspecified; I25.2 Old myocardial infarction; M19.90 Unspecified osteoarthritis, unspecified site; F32.9 Major depressive disorder, single episode, unspecified; Z95.1 Presence of aortocoronary bypass graft; Z86.73 Personal history of transient ischemic attack (TIA), and cerebral infarction without residual deficits; Z79.4 Long term (current) use of insulin; Z79.84 Long term (current) use of oral hypoglycemic drugs; Z87.891 Personal history of nicotine dependence; Z85.038 Personal history of other malignant neoplasm of large intestine; Z79.899 Other long term (current) drug therapy
CPT/HCPCS: 01270; 36247; 37227; 75710; 80048; 82550; 82948; 84484; 85025; 85027; 85610; 93005; 96372; 96374; 97163; C1725; C1769; C1874; G0378; G8987; G8988; J1200; J1644; J1650; J1815; J2250; J2405; J3010; J7070; Q9967